=== PATIENT | male | born 1955 | race Caucasian/White ===

== ENCOUNTER 2016-10-07 19:33 | Inpatient (IN) ==
[2016-10-07] MEDS ORDERED: Levofloxacin 750 MG/150 ML 750 MG/150 ML BAG IVPB ONE (19:37)
[2016-10-07] MEDS ORDERED: Ipratropium/Albuterol Neb 3 ML IH ONE (19:37)
[2016-10-07] MEDS ORDERED: Piperacillin/Tazobactam 3.375 GM in D5% in Water (Mini-Bag+) 100 ML IVPB ONE (19:37)
[2016-10-07] MEDS ORDERED: Vancomycin 1,000 MG VIAL IVPB ONE (19:37)
[2016-10-07] MEDS ORDERED: methylPREDNISolone 125 MG/2 ML VIAL IVP ONE (19:37)
[2016-10-07] MEDS ORDERED: Ipratropium/Albuterol Neb 3 ML ONE (19:40)
--- NOTE | 2016-10-07 19:41 | Emergency Department Note ---
Disposition Clinical Impression: Community acquired pneumonia Disposition: Admitted As Inpatient Condition: Good Referrals: Dasia Donald MD [Primary Care Provider] - Forms: ED Satisfaction Letter Time of Disposition: 22:21 General Adult HPI - General Chief complaint: ED Shortness of Breath/Dyspnea Stated complaint: PABLO Time Seen by Provider: 10/07/16 19:37 Nursing Notes Reviewed: Yes Vital Signs Reviewed: Yes - History of Present Illness HPI Narrative: Male Pt diagnoses with pneumonia 4 days ago. He has been on antibiotics and steroids, howver his SOB got significantly worse today. Denies fevers. Denies pain. Reports exertional dyspnea. Requiring more oxygen than normal at home. - Related Data Home Medications Medication Instructions Recorded Confirmed Albuterol Neb [Proventil Neb] 2.5 mg IH Q4HR PRN 04/22/15 10/07/16 Albuterol Sulfate [Albuterol 1 - 2 puff IH Q4HR PRN 04/22/15 10/07/16 Inhaler] HYDROcodone/Acet 7.5/325 mg [[place]elope 1 tab PO Q6H PRN 04/22/15 10/07/16 7.5-325 mg] Omeprazole [PriLOSEC] 20 mg PO DAILY 04/22/15 10/07/16 Fluticasone/Salmeterol [Advair 1 puff IH BID 10/07/16 10/07/16 500-50 Diskus] Gabapentin [Neurontin] 600 mg PO TID 10/07/16 10/07/16 Guaifenesin [Mucinex] 600 mg PO Q12H PRN 10/07/16 10/07/16 Metoprolol [Lopressor] 12.5 mg PO BID 10/07/16 10/07/16 Pravastatin Sodium 10 mg PO DAILY 10/07/16 10/07/16 Roflumilast [Daliresp] 500 mcg PO DAILY 10/07/16 10/07/16 Umeclidinium [place] [Incruse 62.5 mcg IH DAILY 10/07/16 10/07/16 Ellipta] Previous Rx's Medication Instructions Recorded levoFLOXacin [Levaquin] 750 mg PO DAILY 7 Days 10/04/16 predniSONE [PredniSONE] 40 mg PO DAILY 7 Days 10/04/16 Allergies Allergy/AdvReac Type Severity Reaction Status Date / Time No Known Allergies Allergy Verified 10/04/16 08:35 All systems ED: reviewed and negative except as stated. Constitutional: Denies: fever, chills ENT ED: Reports: congestion Cardiovascular: Denies: chest pain, palpitations, syncope Respiratory: Reports: cough, dyspnea, wheezes, sputum production Gastrointestinal: Denies: abdominal pain, nausea, vomiting, diarrhea, hematemesis, melena, hematochezia Genitourinary: Denies: urgency, dysuria, frequency, hematuria Musculoskeletal: Denies: back pain Integumentary: Denies: rash Past Medical History - Past Medical History Medical history: Reports: COPD, GERD, hyperlipidemia, other Psychiatric history: Reports: depression - Social History Smoking Status: Current every day smoker Smokeless Tobacco Status: No Alcohol use: Reports: none Drug use: Reports: none Physical Exam - General Limitations: no limitations General appearance: alert, in distress (respiratory) - Head Head exam: atraumatic, normocephalic, normal inspection - Eye Eye exam: Present: normal appearance, PERRL, EOMI. Absent: scleral icterus - ENT ENT exam: normal exam, normal oropharynx, mucous membranes moist - Neck Neck exam: Present: normal inspection, full ROM, trachea midline. Absent: tenderness, meningismus, lymphadenopathy - Chest Chest inspection: Present: normal inspection, symmetric chest wall rise. Absent : tenderness, rash - Respiratory Respiratory exam: Present: respiratory distress, wheezes (tight lung sounds throuhout), accessory muscle use - Cardiovascular Cardiovascular exam: Present: regular rate, normal rhythm, normal heart sounds - Abdominal Exam Abdominal exam: Present: soft, Non-Tender, normal bowel sounds. Absent: tenderness, distention, guarding, rebound, rigidity - Extremities Exam Extremities exam: Present: normal inspection, full ROM, normal capillary refill. Absent: tenderness, pedal edema - Neurological Exam Neurological exam: Present: alert, oriented X3 - Psychiatric Psychiatric exam: Present: normal affect, normal mood - Skin Skin exam: Present: warm, dry, intact, normal color. Absent: rash, cyanosis, diaphoresis, erythema Course Course Narrative: Male Pt presenting to the ED by EMS. He was diagnosed with pneumonia on Thursday 4 days ago. He has been taking an unknown antibiotic at home as well as steroids. He states that today he got very Short of breath and called 911. He is complaing of a productive cough and exertional dyspnea. He is on a NRB at entrance to the ED and has an oxygen saturation in the mid 90's. He recieved 1 albuterol treatment during transport. Pt appears in respiratory distress, and has significant wheezing throughout. We have ordered 3 more duo nebs. Chest XRAY showed a right upper lobe pneumonia. We will begin Pt on triple antibiotics and admit him for failed out Patient therapy. He is maintainig an oxygen saturation of 95% on 2 lpm after steroids and a triple duo neb. - Consultations Consultation #1: Dr Olson accepted Pt in stable condition. Time: 21:22 Vital Signs Temperature 98.6 F 10/07/16 19:35 Pulse Rate 99 10/07/16 19:35 Respiratory Rate 24 10/07/16 19:35 Blood Pressure 182/103 10/07/16 19:35 O2 Sat by Pulse Oximetry 100 10/07/16 19:35 Temperature 98.6 F 10/07/16 19:35 Pulse Rate 92 10/07/16 20:32 Respiratory Rate 18 10/07/16 20:32 Blood Pressure 171/106 10/07/16 20:32 O2 Sat by Pulse Oximetry 99 10/07/16 20:32 Oxygen Delivery Oxygen Delivery Room Air Medical Decision Making - Medical Records Medical records reviewed: Yes I reviewed the patient's medical records. - Lab Data Lab results reviewed: Yes I reviewed the patient's lab results. Result diagrams: 10/07/16 20:10 10/07/16 20:10 Lab Results 10/07/16 10/07/16 10/07/16 Range/Units 20:10 20:10 20:10 WBC 9.7 (4.3-11.1) K/mcL RBC 5.31 (4.19-5.50) M/mcL Hgb 15.6 (12.9-16.9) g/dL Hct 47.1 (37.5-50.1) % MCV 88.7 (83.0-100.0) fL MCH 29.4 (28.0-33.3) pg MCHC 33.1 (31.6-35.5) g/dL RDW 13.5 (11.5-14.5) % Plt Count 276 (140-400) K/mcL MPV 9.2 L (9.4-12.4) fL Seg Neutrophils % 68.0 % Band Neutrophils % 2.0 (0-4) % Lymphocytes % 22.0 % Monocytes % 8.0 % Neutrophils # 6.8 (1.6-8.9) K/mcL Lymphocytes # 2.1 (0.6-4.6) K/mcL Monocytes # 0.8 (0.0-1.3) K/mcL Reactive Lymphocytes Present A (Not Present) Platelet Estimate Normal (Normal) Sodium 140 (136-145) mEq/L Potassium 4.1 (3.5-4.5) mEq/L Chloride 100 (98-109) mEq/L Carbon Dioxide 29 (19-29) mEq/L BUN 17 (8-26) mg/dL Creatinine 0.81 (0.72-1.25) mg/dL Est GFR ( Amer) > 60 (> 60) Est GFR (Non-Af Amer) > 60 (> 60) BUN/Creatinine Ratio 21 (6-26) Glucose 117 H (70-99) mg/dL Calculated Osmolality 293 (280-300) Lactic Acid 1.2 (0.5-2.2) mmol/L Calcium 9.8 (8.6-10.8) mg/dL Troponin I (0-0.03) ng/mL 10/07/16 Range/Units 20:10 WBC (4.3-11.1) K/mcL RBC (4.19-5.50) M/mcL Hgb (12.9-16.9) g/dL Hct (37.5-50.1) % MCV (83.0-100.0) fL MCH (28.0-33.3) pg MCHC (31.6-35.5) g/dL RDW (11.5-14.5) % Plt Count (140-400) K/mcL MPV (9.4-12.4) fL Seg Neutrophils % % Band Neutrophils % (0-4) % Lymphocytes % % Monocytes % % Neutrophils # (1.6-8.9) K/mcL Lymphocytes # (0.6-4.6) K/mcL Monocytes # (0.0-1.3) K/mcL Reactive Lymphocytes (Not Present) Platelet Estimate (Normal) Sodium (136-145) mEq/L Potassium (3.5-4.5) mEq/L Chloride (98-109) mEq/L Carbon Dioxide (19-29) mEq/L BUN (8-26) mg/dL Creatinine (0.72-1.25) mg/dL Est GFR ( Amer) (> 60) Est GFR (Non-Af Amer) (> 60) BUN/Creatinine Ratio (6-26) Glucose (70-99) mg/dL Calculated Osmolality (280-300) Lactic Acid (0.5-2.2) mmol/L Calcium (8.6-10.8) mg/dL Troponin I 0.00 (0-0.03) ng/mL - Radiology Data Radiology results reviewed: Yes I reviewed the patient's radiology results. Chest X-Ray 10/07/16 19:37 IMPRESSION: Present patchy opacity in the right upper lung zone, concerning for pneumonia. As before, follow-up radiographs are recommended to document resolution. If this fails to resolve, further evaluation with CT may be warranted. D/ / Deny Morrell MD / Deny Morrell MD Interpreting Provider: Deny Morrell MD - EKG Data EKG #1 EKG attestation: Yes I reviewed and interpreted this EKG. EKG results narrative: Normal sinus rhythm at a rate of 88. [place] interval 152 QRS duration 104, QT 351, QTC 397. NO signs of acute ischemia. No significant changes from previous EKG dated 10/04/16.
--- NOTE | 2016-10-07 20:04 | Emergency Department Note ---
START Narrative - START START: I examined this patient and my medical decision-making was reviewed with the ROOFING MACHINE OPERATOR/PA/Advanced Practice Nurse/Resident Physician. I agree with the documented findings, disposition and treatment plan as described except to the extent set forth below. ED attending note: Patient seen with emergency medicine resident Dr Walters. We independently evaluated the patient. We independently had [id number] contact with the patient. Please see a copy of his note for details of the history and physical, evaluation, management and disposition of this emergency Department patient. Briefly: This 61-year-old male home O2 dependent recently diagnosed with pneumonia increasing shortness of breath despite supplemental home O2. Comes in wheezing and fatigued. Ill but nontoxic. Tachycardic. Patient getting couple DuoNeb treatments IV antibiotics chest x-ray blood cultures admission is anticipated. Provided 35 minutes of critical care services for this patient. Disposition PENDING
[2016-10-07 20:24] LABS: Hematocrit 47.1 % (37.5-50.1); Hemoglobin 15.6 g/dL (12.9-16.9); Mean Corpuscular HGB Conc 33.1 g/dL (31.6-35.5); Mean Corpuscular Hemoglobin 29.4 pg (28.0-33.3); Mean Corpuscular Volume 88.7 fL (83.0-100.0); Mean Platelet Volume 9.2 fL (9.4-12.4); Platelet Count 276 K/mcL (140-400); Red Blood Count 5.31 M/mcL (4.19-5.50); Red Cell Distribution Width 13.5 % (11.5-14.5)
[2016-10-07 20:36] LABS: BUN/Creatinine Ratio 21 (6-26); Blood Urea Nitrogen 17 mg/dL (8-26); Calcium 9.8 mg/dL (8.6-10.8); Carbon Dioxide 29 mEq/L (19-29); Chloride 100 mEq/L (98-109); Glucose 117 mg/dL (70-99); Osmolality,Calculated 293 (280-300); Potassium 4.1 mEq/L (3.5-4.5); Sodium 140 mEq/L (136-145); eGFR For African Americans > 60 (> 60); eGFR For Non-African Americans > 60 (> 60)
[2016-10-07 20:51] LABS: Lymphocytes # 2.1 K/mcL (0.6-4.6); Monocytes # 0.8 K/mcL (0.0-1.3); Neutrophils # 6.8 K/mcL (1.6-8.9); Platelet Estimate Normal (Normal)
[2016-10-07 20:52] LABS: Reactive Lymphocytes Present (Not Present)
[2016-10-07] MEDS ORDERED: D5% in Water 250 ML ONE (21:33)
[2016-10-07] MEDS ORDERED: Acetaminophen 325 MG TABLET PO PRN (22:27)
[2016-10-07] MEDS ORDERED: Naloxone 0.4 MG/ML INJ IVP PRN (22:27)
[2016-10-07] MEDS ORDERED: *HR* HYDROcodone/Acet 7.5/325 mg TABLET PO PRN (22:34)
[2016-10-07] MEDS ORDERED: Albuterol 2.5 MG/3 ML NEBULIZER IH PRN (22:36)
--- NOTE | 2016-10-07 23:10 | Internal Med History&Physical ---
Date of Encounter: 10/07/16 Time of Encounter: 23:01 Assessment and Plan (1) Community acquired pneumonia Current visit: Yes Status: Acute 1 patient has been experiencing increasing shortness of breath as well as cough since Thursday. He presented to the ER on Thursday these complaints he was offered admission however he declined he was given prescription for Levaquin as well as steroids he did not take medication as prescribed her symptoms worsened over the next few days. Today he presented increasing shortness of breath chest x-ray did confirm a right upper lobe pneumonia. He was started on Levaquin pink and Zosyn. We will continue with Levaquin and Zosyn 2 continue with bronchodilators 3 continue with steroids 4 we will will obtain sputum culture 5 oxygen as needed titrating to maintain SPO2 greater than 92% (2) Acute exacerbation of chronic obstructive airways disease Current visit: Yes Status: Acute 1 patient has wheezing upon presentation. Oxygen saturation is 93% on room air at this time. He will continue with oxygen titrating to maintain SPO2 greater than 92% 2 we will continue with bronchodilators 3 continue with steroids IV to taper 4. Encourage patient to stop smoking 5 continue with dailiresp (3) HTN (hypertension) Current visit: Yes Status: Acute 1 we will continue with home medications Qualifiers: Hypertension type: essential hypertension Qualified Code(s): I10 - Essential (primary) hypertension (4) GERD (gastroesophageal reflux disease) Current visit: No Status: Acute Continue with Prilosec Qualifiers: Esophagitis presence: without esophagitis Qualified Code(s): K21.9 - Gastro -esophageal reflux disease without esophagitis (5) Tobacco abuse Current visit: No Status: Chronic Encouraged patient to stop smoking-nicotine patch (6) DVT prophylaxis Current visit: Yes Status: Acute Lovenox [facility] Internal Medicine - H&P: HPI Chief complaint: SOB Admitted From: Emergency Dept Plans for Post Hospital Care: Home History of present illness: Mr. Orellana is a 61 year old male past medical history of COPD oxygen dependent GERD hypertension present smoker. According to the patient he has been experiencing cough shortness of breath since last Thursday. He presented to the ER at that time for evaluation, the ER physician on to admit the patient however he declined. He was given prescription of Levaquin by mouth as well as oral steroids. He had his prescriptions filled on Thursday, took them as prescribed. The patient did not feel any better over the next few days actually he began to feel worse. Experiencing increasing exertional dyspnea unable to perform his ADLs despite the use of oxygen/or bronchodilators. He does have a cough however is unable to produce any sputum he denies any fevers or chills. States he is unable to sleep due to shortness of breath. He called 911 and during transfer and received albuterol treatment upon arrival to the ER with a saturation mid 90s. He appeared to be in respiratory distress with significant wheezing he was given 3 more duo nebs as well as IV Solu-Medrol. Chest x-ray showed right upper lobe pneumonia. Lab work was unremarkable leukocytosis patient was afebrile. he was admitted for further workup evaluation. presently upon assessment patient is sitting on side of bed there are audible wheezes. he denies any respiratory distress he states he feels better than when he first arrived to the hospital. His lung sounds are diminished in the bases with audible wheezes. Heart sounds are regular S1-S2 no rubs clicks murmurs noted. Abdomen soft nontender. There is no lower extremity edema noted. Presently he is hemodynamically stable at this time. This case with Dr. Olson who agrees with plan. Past Med Surg Social Fam HX - Past Medical History Medical history: COPD, GERD, hyperlipidemia, other Psychiatric history: depression - Social History Smoking Status: Current every day smoker Smokeless Tobacco Status: No Alcohol use: none Drug use: none - Family History Mother Living Status: Hx Family Cardiac Disorders: (MS) Internal Medicine - H&P: Meds Albuterol Neb [Proventil Neb] 2.5 mg IH Q4HR PRN 04/22/15 [History] Albuterol Sulfate [Albuterol Inhaler] 1 - 2 puff IH Q4HR PRN 04/22/15 [History] HYDROcodone/Acet 7.5/325 mg [[place] 7.5-325 mg] 1 tab PO Q6H PRN 04/22/15 [ History] Omeprazole [PriLOSEC] 20 mg PO DAILY 04/22/15 [History] levoFLOXacin [Levaquin] 750 mg PO DAILY 7 Days 10/04/16 [Rx] predniSONE [PredniSONE] 40 mg PO DAILY 7 Days 10/04/16 [Rx] Fluticasone/Salmeterol [Advair 500-50 Diskus] 1 puff IH BID 10/07/16 [History] Gabapentin [Neurontin] 600 mg PO TID 10/07/16 [History] Guaifenesin [Mucinex] 600 mg PO Q12H PRN 10/07/16 [History] Metoprolol [Lopressor] 12.5 mg PO BID 10/07/16 [History] Pravastatin Sodium 10 mg PO DAILY 10/07/16 [History] Roflumilast [Daliresp] 500 mcg PO DAILY 10/07/16 [History] Umeclidinium [place] [Incruse Ellipta] 62.5 mcg IH DAILY 10/07/16 [History] Allergies No Known Allergies Allergy (Verified 10/04/16 08:35) All Systems PM: A 10-system review of systems was performed and is negative for pertinent findings except as documented above in the HPI. - Constitutional Constitutional: no chills, no fever(s), no night sweats - EENT Eyes: no change in vision, no discharge, no pain, no photophobia Nose, mouth and throat: nasal congestion, no dysphagia, no nasal discharge, no neck pain, no sore throat - Cardiovascular Cardiovascular ROS IM: dyspnea on exertion, orthopnea, no chest pain, no diaphoresis, no dyspnea, no lightheadedness, no palpitations, no syncope - Respiratory Respiratory: cough, dyspnea on exertion, wheezing - Gastrointestinal Gastrointestinal: no abdominal pain, no diarrhea, no hematemesis, no hematochezia, no melena, no nausea, no vomiting - Musculoskeletal Musculoskeletal ROS IM: back pain, no numbness, no tingling - Integumentary Integumentary IM: no rash, no unusual bruising - Neurological Neurological ROS: no confusion, no convulsions, no focal weakness, no numbness, no tingling, no tremor(s) - Hematologic/Lymphatic Hematologic/Lymphatic: no easy bruising - Constitutional Vitals: Temp Pulse Resp BP Pulse Ox 98.8 F 80 0 0/0 96 10/07/16 22:29 10/07/16 22:05 10/07/16 22:29 10/07/16 22:29 10/07/16 22:05 General appearance: Present: A&O X 3, answers questions appropriately - Head Head exam: Present: atraumatic, normocephalic - Eye Eye exam: Present: PERRL, conjuntiva pink, sclera anicteric Pupils: Present: PERRL - Neck Neck exam general surgery: Present: supple, trachea midline. Absent: lymphadenopathy - Respiratory Respiratory exam: Present: respiratory distress, wheezes. Absent: accessory muscle use, rales, rhonchi - Cardiovascular Cardiovascular exam: Present: RRR, +S1, +S2. Absent: diastolic murmur, gallop, rubs, systolic murmur - GI/Abdominal GI/Abdominal exam: Present: normal bowel sounds, soft, no peritoneal signs. Absent: distended, tenderness - Extremities Exam Extremities exam: Present: warm, radial pulses palpable and symetrical. Absent : calf tenderness, cyanotic, pedal edema - Neurological Exam Neurological exam: Present: CN II-XII intact, oriented X3, no focal deficits. Absent: pronater drift, facial droop, speech deficit - Skin Skin exam: Present: dry, intact Internal Med - H&P Results - Labs CBC & Chem 7: 10/07/16 20:10 10/07/16 20:10 - EKG Data EKG shows normal: sinus rhythm - Diagnostic Studies Other Images Additional comments: Chest X-Ray 10/07/16 19:37 IMPRESSION: Present patchy opacity in the right upper lung zone, concerning for pneumonia. As before, follow-up radiographs are recommended to document resolution. If this fails to resolve, further evaluation with CT may be warranted. D/ / Deny Morrell MD / Deny Morrell MD Interpreting Provider: Deny Morrell MD
[2016-10-07] MEDS: Gabapentin 300 MG CAPSULE PO SCH (23:44)
[2016-10-07] MEDS: Nicotine 7 MG PATCH.TD24 TD SCH (23:45)
[2016-10-07] MEDS: methylPREDNISolone 125 MG/2 ML VIAL IVP SCH (23:45)
[2016-10-08] MEDS: Ipratropium/Albuterol Neb 3 ML IH SCH ×7 (00:36→23:05)
[2016-10-08] MEDS: Piperacillin/Tazobactam 3.375 GM in D5% in Water (Mini-Bag+) 100 ML IVPB SCH ×3 (03:12→18:58)
[2016-10-08] MEDS: methylPREDNISolone 125 MG/2 ML VIAL IVP SCH ×3 (05:38→17:15)
[2016-10-08] MEDS: *HR* Enoxaparin 40 MG/0.4 ML SYRINGE SQ SCH (05:39)
[2016-10-08 06:13] LABS: Hematocrit 44.2 % (37.5-50.1); Hemoglobin 14.6 g/dL (12.9-16.9); Mean Corpuscular Hemoglobin 29.3 pg (28.0-33.3); Mean Corpuscular Volume 88.8 fL (83.0-100.0); Mean Platelet Volume 9.3 fL (9.4-12.4); Platelet Count 251 K/mcL (140-400); Red Blood Count 4.98 M/mcL (4.19-5.50); Red Cell Distribution Width 13.3 % (11.5-14.5)
[2016-10-08 06:20] LABS: BUN/Creatinine Ratio 18 (6-26); Blood Urea Nitrogen 14 mg/dL (8-26); Calcium 9.6 mg/dL (8.6-10.8); Carbon Dioxide 29 mEq/L (19-29); Chloride 100 mEq/L (98-109); Glucose 178 mg/dL (70-99); Osmolality,Calculated 291 (280-300); Potassium 4.2 mEq/L (3.5-4.5); Sodium 138 mEq/L (136-145); eGFR For African Americans > 60 (> 60); eGFR For Non-African Americans > 60 (> 60)
[2016-10-08 07:28] LABS: Hypochromasia Present (Not Present); Lymphocytes # 1.6 K/mcL (0.6-4.6); Monocytes # 0.4 K/mcL (0.0-1.3); Neutrophils # 4.7 K/mcL (1.6-8.9); Platelet Estimate Normal (Normal); Reactive Lymphocytes Present (Not Present)
[2016-10-08] MEDS ORDERED: (Umeclidinium Bromide [Incruse Ellipta] 62.5 MCG) IH SCH (09:00)
[2016-10-08] MEDS ORDERED: Roflumilast [Daliresp] 500 MCG PO SCH (09:00)
[2016-10-08] MEDS: Budesonide/Formoterol 160/4.5 MDI IH SCH ×2 (10:45→19:49)
[2016-10-08] MEDS: Gabapentin 300 MG CAPSULE PO SCH ×3 (10:50→20:05)
[2016-10-08] MEDS: Nicotine 7 MG PATCH.TD24 TD SCH (10:52)
[2016-10-08] MEDS: Lactobacillus 1 EACH CAP.SPRINK PO SCH ×2 (10:52→20:05)
[2016-10-08] MEDS: Fluticasone Propionate Nasal 50 MCG/SPRAY BOTTLE NS SCH (13:14)
--- NOTE | 2016-10-08 16:18 | Internal Med Progress Note ---
Date of Encounter: 10/08/16 Time of Encounter: 09:00 - Assessment and plan (1) Community acquired pneumonia Current Visit: Yes Status: Acute Assessment and plan: Patient has failed by mouth Levaquin treatment as outpatient. We will continue IV Levaquin and IV Zosyn. Continue symptomatic and supportive treatment (2) Acute exacerbation of chronic obstructive airways disease Current Visit: Yes Status: Acute Assessment and plan: We will continue antibiotic, steroid, and bronchodilator treatment. Continue oxygen therapy and symptomatic treatment (3) GERD (gastroesophageal reflux disease) Current Visit: No Status: Acute Assessment and plan: Continue by mouth PPI omeprazole Qualifiers: Esophagitis presence: without esophagitis Qualified Code(s): K21.9 - Gastro -esophageal reflux disease without esophagitis (4) Hyperlipidemia Current Visit: No Status: Acute Assessment and plan: Continue home medications simvastatin Qualifiers: Hyperlipidemia type: mixed hyperlipidemia Qualified Code(s): E78.2 - Mixed hyperlipidemia (5) HTN (hypertension) Current Visit: Yes Status: Acute Assessment and plan: BP is stable continue home medications Qualifiers: Hypertension type: essential hypertension Qualified Code(s): I10 - Essential (primary) hypertension (6) DVT prophylaxis Current Visit: Yes Status: Acute Assessment and plan: Lovenox subcutaneously (7) Tobacco abuse Current Visit: No Status: Chronic Assessment and plan: Smoking cessation education has been done. On nicotine patch - Time Spent With Patient 25 - 35 minutes - Subjective Interval history: Patient is a 61-year-old male admitted for COPD exacerbation and pneumonia. His past medical history significant for COPD, hypertension, GERD, tobacco abuse Patient was seen and examined. Still has shortness of breath, in acute respiratory distress. Wheezing. Feels better than yesterday. No fever. Nonproductive cough. Vitals are stable. Continue current treatment. - Constitutional Vitals: Temp Pulse Resp BP Pulse Ox 98.4 F 112 18 128/86 96 10/08/16 11:26 10/08/16 11:26 10/08/16 16:06 10/08/16 11:26 10/08/16 16:06 General appearance: Present: mild distress, A&O X 3, answers questions appropriately - Head Head exam: Present: atraumatic, normocephalic - Eye Eye exam: Present: PERRL, conjuntiva pink, sclera anicteric Pupils: Present: PERRL - Neck Neck exam general surgery: Present: supple, trachea midline. Absent: lymphadenopathy - Respiratory Respiratory exam: Present: CTAB, wheezes (Diffused wheezes bilaterally). Absent : accessory muscle use, rales, rhonchi - Cardiovascular Cardiovascular exam: Present: RRR, +S1, +S2. Absent: diastolic murmur, gallop, rubs, systolic murmur - GI/Abdominal GI/Abdominal exam: Present: normal bowel sounds, soft, no peritoneal signs. Absent: distended, tenderness - Extremities Exam Extremities exam: Present: warm, radial pulses palpable and symetrical. Absent : calf tenderness, cyanotic, pedal edema - Neurological Exam Neurological exam: Present: CN II-XII intact, oriented X3, no focal deficits. Absent: pronater drift, facial droop, speech deficit - Skin Skin exam: Present: dry, intact Internal Medicine: Result - Labs CBC & Chem 7: 10/08/16 05:38 10/08/16 05:38 Labs: Short CBC 10/08/16 Range/Units 05:38 WBC 6.7 (4.3-11.1) K/mcL Hgb 14.6 (12.9-16.9) g/dL Hct 44.2 (37.5-50.1) % Plt Count 251 (140-400) K/mcL Neutrophils # 4.7 (1.6-8.9) K/mcL BMP 10/08/16 05:38 Sodium 138 Potassium 4.2 Chloride 100 Carbon Dioxide 29 BUN 14 Creatinine 0.79 Glucose 178 H Calcium 9.6 Consult Discharge Plan - Plan Referrals: Dasia Donald MD [Primary Care Provider] -
[2016-10-08] MEDS: *HR* HYDROcodone/Acet 7.5/325 mg TABLET PO PRN (20:05)
[2016-10-08] MEDS ORDERED: Levofloxacin 750 MG/150 ML 750 MG/150 ML BAG IVPB SCH (20:30)
[2016-10-08] MEDS ORDERED: levoFLOXacin 750 MG TABLET PO SCH (20:30)
[2016-10-08 23:30] LABS: Adenovirus F 40/41 PCR Not detected (Not detect); Astrovirus PCR Not detected (Not detect); C.difficile Toxin A/B by PCR Not detected (Not detect); Campylobacter by PCR Not detected (Not detect); Cryptosporidium by PCR Not detected (Not detect); Cyclospora cayetanensis PCR Not detected (Not detect); E. coli O157 by PCR Not detected (Not detect); Entamoeba histolytica PCR Not detected (Not detect); Enteroaggregative E.coli(EAEC) Not detected (Not detect); Enteropathogenic E.coli(EPEC) Not detected (Not detect); Enterotoxigenic E.coli (ETEC) Not detected (Not detect); Giardia lamblia PCR Not detected (Not detect); Norovirus GI/GII PCR Not detected (Not detect); Plesiomonas shigelloides PCR Not detected (Not detect); Rotavirus A PCR Not detected (Not detect); Salmonella PCR Not detected (Not detect); Sapovirus PCR Not detected (Not detect); Shig/EnteroinvasiveE coli EIEC Not detected (Not detect); Shigalike tox-prod E coli STEC Not detected (Not detect); Vibrio PCR Not detected (Not detect); Vibrio cholerae PCR Not detected (Not detect); Yersinia enterocolitica PCR Not detected (Not detect)
[2016-10-09] MEDS: Piperacillin/Tazobactam 3.375 GM in D5% in Water (Mini-Bag+) 100 ML IVPB SCH (03:44)
[2016-10-09] MEDS: *HR* HYDROcodone/Acet 7.5/325 mg TABLET PO PRN ×2 (03:47→09:37)
[2016-10-09] MEDS: Ipratropium/Albuterol Neb 3 ML IH SCH ×3 (04:09→11:14)
[2016-10-09 06:07] LABS: Basophils % 0.1 %; Hematocrit 44.2 % (37.5-50.1); Hemoglobin 14.4 g/dL (12.9-16.9); Immature Granulocytes % 0.6 % (0-4); Lymphocytes # 2.4 K/mcL (0.6-4.6); Lymphocytes % 16.4 %; Mean Corpuscular HGB Conc 32.6 g/dL (31.6-35.5); Mean Corpuscular Hemoglobin 29.2 pg (28.0-33.3); Mean Corpuscular Volume 89.7 fL (83.0-100.0); Mean Platelet Volume 9.4 fL (9.4-12.4); Monocytes # 1.2 K/mcL (0.0-1.3); Neutrophils # 10.8 K/mcL (1.6-8.9); Platelet Count 276 K/mcL (140-400); Red Blood Count 4.93 M/mcL (4.19-5.50); Red Cell Distribution Width 13.5 % (11.5-14.5); Segmented Neutrophils % 74.9 %
[2016-10-09] MEDS: methylPREDNISolone 125 MG/2 ML VIAL IVP SCH (06:17)
[2016-10-09] MEDS: *HR* Enoxaparin 40 MG/0.4 ML SYRINGE SQ SCH (06:18)
[2016-10-09 06:19] LABS: BUN/Creatinine Ratio 24 (6-26); Blood Urea Nitrogen 20 mg/dL (8-26); Calcium 9.5 mg/dL (8.6-10.8); Carbon Dioxide 30 mEq/L (19-29); Chloride 101 mEq/L (98-109); Glucose 159 mg/dL (70-99); Osmolality,Calculated 300 (280-300); Potassium 3.6 mEq/L (3.5-4.5); Sodium 142 mEq/L (136-145); eGFR For African Americans > 60 (> 60); eGFR For Non-African Americans > 60 (> 60)
[2016-10-09] MEDS: Budesonide/Formoterol 160/4.5 MDI IH SCH (07:39)
[2016-10-09] MEDS: Lactobacillus 1 EACH CAP.SPRINK PO SCH (09:24)
[2016-10-09] MEDS: Gabapentin 300 MG CAPSULE PO SCH (09:26)
[2016-10-09] MEDS: Nicotine 7 MG PATCH.TD24 TD SCH (09:26)
[2016-10-09] MEDS: Fluticasone Propionate Nasal 50 MCG/SPRAY BOTTLE NS SCH (09:29)
--- NOTE | 2016-10-09 09:38 | Discharge Summary ---
Date of Encounter: 10/09/16 Time of Encounter: 09:33 - Discharge Diagnosis (1) Acute exacerbation of chronic obstructive airways disease Priority: Primary Status: Acute (2) Community acquired pneumonia Priority: Primary Status: Acute (3) HTN (hypertension) Priority: Secondary Status: Chronic Qualifiers: Hypertension type: essential hypertension Qualified Code(s): I10 - Essential (primary) hypertension (4) Hyperlipidemia Priority: Secondary Status: Chronic Qualifiers: Hyperlipidemia type: mixed hyperlipidemia Qualified Code(s): E78.2 - Mixed hyperlipidemia (5) GERD (gastroesophageal reflux disease) Priority: Secondary Status: Chronic Qualifiers: Esophagitis presence: without esophagitis Qualified Code(s): K21.9 - Gastro -esophageal reflux disease without esophagitis (6) Tobacco abuse Priority: Secondary Status: Chronic - Discharge Medications Prescriptions: Fluticasone Propionate Nasal [Flonase] 100 mcg NS DAILY #1 bottle Nicotine Patch [Nicoderm] 7 mg TD DAILY #30 patch.[id number] PredniSONE [Deltasone] 40 mg PO DAILY #10 tablet Saline Nasal [place] [[place] Nasal [place]] 1 spray NS AD #1 spray Home Medications: Albuterol Neb [Proventil Neb] 2.5 mg IH Q4HR PRN 04/22/15 [History] Albuterol Sulfate [Albuterol Inhaler] 1 - 2 puff IH Q4HR PRN 04/22/15 [History] HYDROcodone/Acet 7.5/325 mg [[place] 7.5-325 mg] 1 tab PO Q6H PRN 04/22/15 [ History] Omeprazole [PriLOSEC] 20 mg PO DAILY 04/22/15 [History] Fluticasone/Salmeterol [Advair 500-50 Diskus] 1 puff IH BID 10/07/16 [History] Gabapentin [Neurontin] 600 mg PO TID 10/07/16 [History] Guaifenesin [Mucinex] 600 mg PO Q12H PRN 10/07/16 [History] Metoprolol [Lopressor] 12.5 mg PO BID 10/07/16 [History] Pravastatin Sodium 10 mg PO DAILY 10/07/16 [History] Roflumilast [Daliresp] 500 mcg PO DAILY 10/07/16 [History] Umeclidinium [place] [Incruse Ellipta] 62.5 mcg IH DAILY 10/07/16 [History] Fluticasone Propionate Nasal [Flonase] 100 mcg NS DAILY #1 bottle 10/09/16 [Rx] Nicotine Patch [Nicoderm] 7 mg TD DAILY #30 patch.td24 10/09/16 [Rx] PredniSONE [Deltasone] 40 mg PO DAILY #10 tablet 10/09/16 [Rx] Saline Nasal [place] [[place] Nasal [place]] 1 spray NS AD #1 spray 10/09/16 [Rx] levoFLOXacin [Levaquin] 750 mg PO Q24H tablet 10/09/16 [Rx] Allergies/Adverse Reactions: Allergies No Known Allergies Allergy (Verified 10/04/16 08:35) Date of admission: 10/07/16 22:27 Primary care physician: Dasia Donald MD Discharging clinician: Miguel Angel Dillon Anticipated date of discharge: 10/09/16 - Patient Status Disposition: Home, Self-Care Condition: Good Functional capacity at discharge: independent ambulation Overall status at discharge: patient is progressing back to baseline - Discharge Instructions Instructions: Pneumonia (DC) Follow Up With: Dasia Donald MD [Primary Care Provider] - 10/15/16 1:00 pm (Please follow up with [facility] Fred Vick CNP for this visit and your new PCP that is taking over for Dr. Donald will start in November) Additional Instructions: Use nasal saline as needed to moisture nose. Follow up with primary doctor in 1-2 weeks. - Diet and Activity Activity: increase activity as tolerated Diet: advance to your usual diet Hospital course: Mr. Orellana is a 61 year old male presented to ED with complaints of worsening dyspnea. He originally was seen and started on PO Levaquin and steroids. He took these for a few days but was no better and presented to ED with similar complaints. He was subsequently admitted. Mr. Orellana was admitted to [facility]. He was started on IV steroids, abx, aerosols, and aggressive pulmonary care. He had slow improvement in his symptoms and steroids were taper. On 10/09 he felt that he was at baseline breathing. He had all of his medications at home including nebulizer. He says he wheezes always and is dyspneic with movement. He felt he was at baseline and ready to go home. He was afebrile and vitals were stable. He is high risk for readmission due to his overall poor respiratory status but he has been maximized here in the hospital. - Time Spent with Patient Total time spent providing and/or coordinating discharge services: 39min - Constitutional Vitals: Temp Pulse Resp BP Pulse Ox 97.3 F L 98 18 143/82 97 10/09/16 07:02 10/09/16 07:02 10/09/16 07:41 10/09/16 07:02 10/09/16 07:41 General appearance: Present: A&O X 3, answers questions appropriately - Head Head exam: Present: normocephalic - Eye Eye exam: Present: EOMI, conjuntiva pink - ENT ENT exam: Present: mucous membranes moist - Respiratory Respiratory exam: Present: prolonged expiratory phase, wheezes - Cardiovascular Cardiovascular exam: Present: RRR. Absent: tachycardia - GI/Abdominal GI/Abdominal exam: Present: soft. Absent: tenderness - Extremities Exam Extremities exam: Present: warm. Absent: pedal edema, tenderness - Neurological Exam Neurological exam: Present: alert, oriented X3, no focal deficits - Skin Skin exam: Present: warm. Absent: rash
[2016-10-09 10:52] VITALS: BP 157/87
--- NOTE | 2016-10-09 11:16 | Electrocardiograph Report ---
[place] [id number] Test Date: 2016-10-07 Pat Name: Will Orellana Department: 105 Room: 2A25 Gender: M Production Associate: [id number] : 1955 Requested By: Hedy Walters Order Number: [id number] Reading MD: Olivier Carroll MD Measurements Intervals [place] Rate: 88 P: 90 IA: 152 QRS: 75 QRSD: 104 T: 73 QT: 351 QTc: 397 Interpretive Statements SINUS RHYTHM Electronically Signed On 10-09-2016 11:15:07 EDT by Olivier Carroll MD
== END 2016-10-09 11:30 | disposition home or self-care (01) | DRG 140 ==
LOC: EMEROO 19:33 → 2ANU 19:33 → SUATTDRO 22:27 → 2ANU 22:32
PROVIDERS: ADMIT Internal Medicine; ATTEND Internal Medicine

== ENCOUNTER 2019-12-15 04:34 | Inpatient (IN) ==
[2019-12-15] MEDS ORDERED: Ipratropium/Albuterol Neb 3 ML IH ONE (04:51)
[2019-12-15] MEDS ORDERED: methylPREDNISolone 125 MG/2 ML VIAL IVP ONE (04:51)
[2019-12-15] MEDS ORDERED: cefTRIAXone 1,000 MG in 0.9 % Sodium Chloride Mini Bag 100 ML IVPB ONE (05:20)
[2019-12-15] MEDS ORDERED: Azithromycin 500 MG in 0.9 % Sodium Chloride 250 ML IVPB ONE (05:20)
[2019-12-15 05:24] LABS: Basophils # 0.1 K/mcL (0.0-0.2); Basophils % 0.3 %; Eosinophils # 0.2 K/mcL (0.0-0.6); Eosinophils % 0.9 %; Hematocrit 39.3 % (37.5-50.1); Hemoglobin 12.5 g/dL (12.9-16.9); Immature Granulocytes % 0.5 % (0-4); Lymphocytes # 2.1 K/mcL (0.6-4.6); Mean Corpuscular HGB Conc 31.8 g/dL (31.6-35.5); Mean Corpuscular Hemoglobin 31.9 pg (28.0-33.3); Mean Corpuscular Volume 100.3 fL (83.0-100.0); Mean Platelet Volume 9.5 fL (9.4-12.4); Monocytes # 1.9 K/mcL (0.0-1.3); Monocytes % 9.4 %; Neutrophils # 16.2 K/mcL (1.6-8.9); Platelet Count 303 K/mcL (140-400); Red Blood Count 3.92 M/mcL (4.19-5.50); Segmented Neutrophils % 78.9 %; White Blood Count 20.5 K/mcL (4.3-11.1)
[2019-12-15 05:41] LABS: INR 1.1; Prothrombin Time 12.6 Seconds (9.4-12.1)
[2019-12-15] MEDS ORDERED: Isovue-370 500 ML BOTTLE IVP ONE (05:51)
[2019-12-15 05:52] LABS: VBG HCO3 38 mEq/L (21-27); VBG PCO2 83 mmHg (41-51); VBG PH 7.28 pH Units (7.32-7.42); VBG PO2 69 mmHg (25-50)
[2019-12-15 07:15] LABS: Adenovirus Not Detected (Not Detect); Coronavirus 229E Not Detected (Not Detect); Coronavirus HKU1 Not Detected (Not Detect); Coronavirus NL63 Not Detected (Not Detect); Coronavirus OC43 Not Detected (Not Detect)
[2019-12-15 07:18] LABS: Bordetella Pertussis Not Detected (Not Detect); Chlamydophila pneumoniae Not Detected (Not Detect); Human Metapneumovirus Not Detected (Not Detect); Human Rhinovirus/Enterovirus Not Detected (Not Detect); Influenza A Subtype 2009 H1 Not Detected (Not Detect); Influenza B Not Detected (Not Detect); Mycoplasma pneumoniae Not Detected (Not Detect); Parainfluenza Virus 1 Not Detected (Not Detect); Parainfluenza Virus 2 Not Detected (Not Detect); Parainfluenza Virus 3 Not Detected (Not Detect); Parainfluenza Virus 4 Not Detected (Not Detect); Respiratory Syncytial Virus Not Detected (Not Detect); SARS-CoV-2 Not Detected (Not Detect)
[2019-12-15 07:26] LABS: Alanine Aminotransferase 9 Units/L (7-52); Albumin 4.1 g/dL (3.5-5.7); Albumin/Globulin Ratio 1.1 (1.1-2.2); Alkaline Phosphatase 61 Units/L (34-104); Aspartate Amino Transferase 13 Units/L (13-39); BUN/Creatinine Ratio 25 (6-26); Bilirubin,Direct 0.1 mg/dL (0.0-0.2); Bilirubin,Indirect 0.3 mg/dL (0.0-1.0); Bilirubin,Total 0.4 mg/dL (0.3-1.0); Blood Urea Nitrogen 12 mg/dL (8-23); Calcium 9.7 mg/dL (8.6-10.3); Carbon Dioxide 35 mEq/L (23-29); Chloride 97 mEq/L (98-107); Globulin 3.7 g/dL (2.4-3.5); Glucose 130 mg/dL (70-105); Lipase 13 Units/L (11-82); Osmolality,Calculated 292 (280-300); Potassium 4.5 mEq/L (3.5-5.1); Sodium 140 mEq/L (136-145); Total Protein 7.8 g/dL (6.4-8.9); eGFR For African Americans > 60 (> 60); eGFR For Non-African Americans > 60 (> 60)
[2019-12-15 08:13] LABS: Troponin I < 0.03 ng/mL (< 0.04)
[2019-12-15] MEDS ORDERED: Naloxone 0.4 MG/ML INJ IVP PRN (09:11)
[2019-12-15] MEDS ORDERED: Albuterol 2.5 MG/3 ML NEBULIZER IH PRN (09:32)
[2019-12-15] MEDS: Budesonide/Formoterol 160/4.5 1 PUFF INH IH SCH ×2 (10:07→20:28)
[2019-12-15] MEDS: Ipratropium/Albuterol Neb 3 ML IH SCH ×3 (10:07→20:28)
[2019-12-15] MEDS: Ringers Solution, Lactated 1,000 ML IVC SCH (11:03)
[2019-12-15] MEDS: Nicotine 21 MG PATCH.TD24 TD SCH (16:13)
[2019-12-15] MEDS: methylPREDNISolone 125 MG/2 ML VIAL IVP SCH (16:13)
[2019-12-15] MEDS: tiZANidine 4 MG TABLET PO SCH (19:52)
[2019-12-15] MEDS: Melatonin 3 MG TABLET PO SCH (19:53)
[2019-12-16] MEDS: Ipratropium/Albuterol Neb 3 ML IH SCH ×7 (00:16→23:23)
[2019-12-16] MEDS: methylPREDNISolone 125 MG/2 ML VIAL IVP SCH ×3 (00:47→15:48)
[2019-12-16] MEDS: Ringers Solution, Lactated 1,000 ML IVC SCH (00:49)
[2019-12-16 05:16] LABS: Basophils % 0.1 %; Hematocrit 35.5 % (37.5-50.1); Immature Granulocytes % 0.6 % (0-4); Lymphocytes # 0.8 K/mcL (0.6-4.6); Lymphocytes % 5.8 %; Mean Corpuscular Hemoglobin 31.3 pg (28.0-33.3); Mean Corpuscular Volume 101.1 fL (83.0-100.0); Mean Platelet Volume 9.5 fL (9.4-12.4); Monocytes # 0.6 K/mcL (0.0-1.3); Monocytes % 4.4 %; Neutrophils # 12.9 K/mcL (1.6-8.9); Platelet Count 292 K/mcL (140-400); Red Blood Count 3.51 M/mcL (4.19-5.50); Red Cell Distribution Width 13.6 % (11.5-14.5); Segmented Neutrophils % 89.1 %; White Blood Count 14.5 K/mcL (4.3-11.1)
[2019-12-16 05:38] LABS: BUN/Creatinine Ratio 27 (6-26); Blood Urea Nitrogen 14 mg/dL (8-23); Carbon Dioxide 40 mEq/L (23-29); Chloride 95 mEq/L (98-107); Glucose 137 mg/dL (70-105); Osmolality,Calculated 289 (280-300); Potassium 4.6 mEq/L (3.5-5.1); Sodium 138 mEq/L (136-145); eGFR For African Americans > 60 (> 60); eGFR For Non-African Americans > 60 (> 60)
[2019-12-16] MEDS: *HR* Heparin 5,000 UNIT/ML VIAL SQ SCH ×2 (06:32→16:13)
[2019-12-16] MEDS: Budesonide/Formoterol 160/4.5 1 PUFF INH IH SCH ×2 (07:23→19:53)
[2019-12-16] MEDS ORDERED: Azithromycin 500 MG in 0.9 % Sodium Chloride 250 ML IVPB SCH (09:00)
[2019-12-16] MEDS ORDERED: 0.9 % Sodium Chloride 250 ML ONE (09:57)
[2019-12-16] MEDS: Loratadine 10 MG TABLET PO SCH (10:06)
[2019-12-16] MEDS: Aspirin Enteric Coated 81 MG Tablet PO SCH (10:06)
[2019-12-16] MEDS: cefTRIAXone 1,000 MG in Water for inj. (sterile) 10 ML IVP SCH (10:07)
[2019-12-16] MEDS: Nicotine 21 MG PATCH.TD24 TD SCH (10:07)
[2019-12-16 10:10] LABS: ABG Base Excess 13 mEq/L (-2 to 3); ABG HCO3 41 mEq/L (21-27); ABG Oxygen Saturation 95 % (95-98); ABG PCO2 67 mmHg (35-45); ABG PH 7.39 pH Units (7.32-7.45); ABG PO2 79 mmHg (85-104); ABG TCO2 43 mEq/L (20-26)
[2019-12-16] MEDS: Fluticasone Propionate Nasal 50 MCG/SPRAY BOTTLE NS SCH (11:59)
[2019-12-16] MEDS: amLODIPine 5 MG TABLET PO SCH (16:13)
[2019-12-16] MEDS: tiZANidine 4 MG TABLET PO SCH (20:53)
[2019-12-16] MEDS: Melatonin 3 MG TABLET PO SCH (20:53)
[2019-12-17] MEDS: methylPREDNISolone 125 MG/2 ML VIAL IVP SCH ×3 (00:20→16:20)
[2019-12-17 03:15] LABS: Hematocrit 35.4 % (37.5-50.1); Mean Corpuscular HGB Conc 31.1 g/dL (31.6-35.5); Mean Corpuscular Volume 99.7 fL (83.0-100.0); Mean Platelet Volume 9.6 fL (9.4-12.4); Platelet Count 303 K/mcL (140-400); Red Blood Count 3.55 M/mcL (4.19-5.50); Red Cell Distribution Width 13.6 % (11.5-14.5); White Blood Count 16.4 K/mcL (4.3-11.1)
[2019-12-17 03:34] LABS: BUN/Creatinine Ratio 40 (6-26); Blood Urea Nitrogen 21 mg/dL (8-23); Calcium 9.8 mg/dL (8.6-10.3); Carbon Dioxide 36 mEq/L (23-29); Chloride 96 mEq/L (98-107); Glucose 132 mg/dL (70-105); Osmolality,Calculated 293 (280-300); Potassium 4.2 mEq/L (3.5-5.1); Sodium 139 mEq/L (136-145); eGFR For African Americans > 60 (> 60); eGFR For Non-African Americans > 60 (> 60)
[2019-12-17] MEDS: Ipratropium/Albuterol Neb 3 ML IH SCH ×6 (04:04→23:22)
[2019-12-17] MEDS: *HR* Heparin 5,000 UNIT/ML VIAL SQ SCH ×2 (05:46→16:20)
[2019-12-17] MEDS: Aspirin Enteric Coated 81 MG Tablet PO SCH (07:30)
[2019-12-17] MEDS: Loratadine 10 MG TABLET PO SCH (07:30)
[2019-12-17] MEDS: Azithromycin 250 MG TABLET PO SCH (07:30)
[2019-12-17] MEDS: Nicotine 21 MG PATCH.TD24 TD SCH (07:30)
[2019-12-17] MEDS: amLODIPine 5 MG TABLET PO SCH (07:30)
[2019-12-17] MEDS: cefTRIAXone 1,000 MG in Water for inj. (sterile) 10 ML IVP SCH (07:31)
[2019-12-17] MEDS: Budesonide/Formoterol 160/4.5 1 PUFF INH IH SCH ×2 (07:42→19:39)
[2019-12-17] MEDS: Fluticasone Propionate Nasal 50 MCG/SPRAY BOTTLE NS SCH (07:48)
[2019-12-17] MEDS: tiZANidine 4 MG TABLET PO SCH (21:53)
[2019-12-17] MEDS: Melatonin 3 MG TABLET PO SCH (21:53)
[2019-12-18] MEDS: methylPREDNISolone 125 MG/2 ML VIAL IVP SCH ×2 (00:53→07:53)
[2019-12-18] MEDS: Ipratropium/Albuterol Neb 3 ML IH SCH ×6 (03:21→23:54)
[2019-12-18 04:59] LABS: Hematocrit 35.8 % (37.5-50.1); Hemoglobin 11.3 g/dL (12.9-16.9); Mean Corpuscular HGB Conc 31.6 g/dL (31.6-35.5); Mean Corpuscular Hemoglobin 31.9 pg (28.0-33.3); Mean Corpuscular Volume 101.1 fL (83.0-100.0); Mean Platelet Volume 9.3 fL (9.4-12.4); Platelet Count 308 K/mcL (140-400); Red Blood Count 3.54 M/mcL (4.19-5.50); Red Cell Distribution Width 13.6 % (11.5-14.5); White Blood Count 15.3 K/mcL (4.3-11.1)
[2019-12-18 05:17] LABS: % Iron Saturation 36 % (20-55); Iron 83 mcg/dL (65-175); Transferrin 166 mg/dL (203-362)
[2019-12-18 05:18] LABS: BUN/Creatinine Ratio 36 (6-26); Blood Urea Nitrogen 23 mg/dL (8-23); Calcium 9.6 mg/dL (8.6-10.3); Carbon Dioxide 38 mEq/L (23-29); Chloride 99 mEq/L (98-107); Glucose 123 mg/dL (70-105); Magnesium 2.2 mg/dL (1.6-2.6); Osmolality,Calculated 299 (280-300); Phosphorous 3.6 mg/dL (2.7-4.5); Potassium 4.2 mEq/L (3.5-5.1); Sodium 142 mEq/L (136-145); eGFR For African Americans > 60 (> 60); eGFR For Non-African Americans > 60 (> 60)
[2019-12-18 05:42] LABS: Folate 4.1 ng/mL (3.0-16.0)
[2019-12-18] MEDS: *HR* Heparin 5,000 UNIT/ML VIAL SQ SCH ×2 (05:44→16:34)
[2019-12-18] MEDS: Budesonide/Formoterol 160/4.5 1 PUFF INH IH SCH ×2 (07:32→19:59)
[2019-12-18] MEDS: cefTRIAXone 1,000 MG in Water for inj. (sterile) 10 ML IVP SCH (07:53)
[2019-12-18] MEDS: Nicotine 21 MG PATCH.TD24 TD SCH (07:54)
[2019-12-18] MEDS: Aspirin Enteric Coated 81 MG Tablet PO SCH (07:54)
[2019-12-18] MEDS: NIFEdipine XL (24 HR) 60 MG TAB.ER.24 PO SCH (07:54)
[2019-12-18] MEDS: Loratadine 10 MG TABLET PO SCH (07:54)
[2019-12-18] MEDS: Azithromycin 250 MG TABLET PO SCH (07:54)
[2019-12-18] MEDS: Fluticasone Propionate Nasal 50 MCG/SPRAY BOTTLE NS SCH (07:55)
[2019-12-18] MEDS: tiZANidine 4 MG TABLET PO SCH (21:02)
[2019-12-18] MEDS: Melatonin 3 MG TABLET PO SCH (21:02)
[2019-12-19 03:13] LABS: Hematocrit 34.8 % (37.5-50.1); Mean Corpuscular HGB Conc 31.6 g/dL (31.6-35.5); Mean Corpuscular Hemoglobin 31.6 pg (28.0-33.3); Mean Platelet Volume 9.3 fL (9.4-12.4); Platelet Count 342 K/mcL (140-400); Red Blood Count 3.48 M/mcL (4.19-5.50); Red Cell Distribution Width 13.5 % (11.5-14.5)
[2019-12-19 03:34] LABS: BUN/Creatinine Ratio 42 (6-26); Blood Urea Nitrogen 26 mg/dL (8-23); Calcium 9.3 mg/dL (8.6-10.3); Carbon Dioxide 38 mEq/L (23-29); Chloride 99 mEq/L (98-107); Glucose 93 mg/dL (70-105); Magnesium 2.2 mg/dL (1.6-2.6); Osmolality,Calculated 298 (280-300); Phosphorous 3.7 mg/dL (2.7-4.5); Potassium 3.9 mEq/L (3.5-5.1); Sodium 142 mEq/L (136-145); eGFR For African Americans > 60 (> 60); eGFR For Non-African Americans > 60 (> 60)
[2019-12-19] MEDS: Ipratropium/Albuterol Neb 3 ML IH SCH ×3 (03:47→11:01)
[2019-12-19] MEDS: *HR* Heparin 5,000 UNIT/ML VIAL SQ SCH (06:33)
[2019-12-19] MEDS: Budesonide/Formoterol 160/4.5 1 PUFF INH IH SCH (07:10)
[2019-12-19] MEDS: Azithromycin 250 MG TABLET PO SCH (07:39)
[2019-12-19] MEDS: cefTRIAXone 1,000 MG in Water for inj. (sterile) 10 ML IVP SCH (07:39)
[2019-12-19] MEDS: NIFEdipine XL (24 HR) 60 MG TAB.ER.24 PO SCH (07:40)
[2019-12-19] MEDS: Aspirin Enteric Coated 81 MG Tablet PO SCH (07:41)
[2019-12-19] MEDS: Loratadine 10 MG TABLET PO SCH (07:41)
[2019-12-19] MEDS: Fluticasone Propionate Nasal 50 MCG/SPRAY BOTTLE NS SCH (07:42)
[2019-12-19] MEDS: Nicotine 21 MG PATCH.TD24 TD SCH (07:42)
[2019-12-19 11:22] VITALS: BP 159/87
[2019-12-19] MEDS ORDERED: MethylPREDNISolone 40 MG/ML VIAL IVP SCH (18:00)
== END 2019-12-19 12:32 | disposition home or self-care (01) | DRG 720 ==
LOC: 2ANU 04:34 → EMEROOARM 04:34 → 2ANU 09:45 → SUATTDRO 10:56
PROVIDERS: ADMIT Internal Medicine; ATTEND Internal Medicine

== ENCOUNTER 2020-01-14 13:36 | Inpatient (IN) ==
[2020-01-14] MEDS ORDERED: 0.9 % Sodium Chloride 1,000 ML IVC ONE (14:00)
[2020-01-14] MEDS ORDERED: Dexamethasone 4 MG/ML VIAL IVP ONE (14:00)
[2020-01-14] MEDS ORDERED: Ipratropium/Albuterol Neb 3 ML IH ONE (14:00)
[2020-01-14 14:06] LABS: Basophils % 0.2 %; Eosinophils # 0.1 K/mcL (0.0-0.6); Eosinophils % 1.1 %; Hematocrit 40.8 % (37.5-50.1); Hemoglobin 12.5 g/dL (12.9-16.9); Immature Granulocytes % 0.4 % (0-4); Lymphocytes # 2.4 K/mcL (0.6-4.6); Lymphocytes % 19.8 %; Mean Corpuscular HGB Conc 30.6 g/dL (31.6-35.5); Mean Corpuscular Hemoglobin 31.3 pg (28.0-33.3); Mean Corpuscular Volume 102.3 fL (83.0-100.0); Mean Platelet Volume 9.1 fL (9.4-12.4); Monocytes # 1.2 K/mcL (0.0-1.3); Monocytes % 9.8 %; Neutrophils # 8.4 K/mcL (1.6-8.9); Platelet Count 286 K/mcL (140-400); Red Blood Count 3.99 M/mcL (4.19-5.50); Red Cell Distribution Width 14.1 % (11.5-14.5); Segmented Neutrophils % 68.7 %; White Blood Count 12.3 K/mcL (4.3-11.1)
[2020-01-14 14:19] LABS: VBG HCO3 41 mEq/L (21-27); VBG PCO2 90 mmHg (41-51); VBG PH 7.26 pH Units (7.32-7.42); VBG PO2 45 mmHg (25-50)
[2020-01-14] MEDS ORDERED: Azithromycin 500 MG in D5% in Water 250 ML IVPB ONE (14:19)
[2020-01-14] MEDS ORDERED: cefTRIAXone 1,000 MG in Water for inj. (sterile) 10 ML IVP ONE (14:19)
[2020-01-14 14:26] LABS: Bilirubin,Urine Negative (Negative); Blood,Urine Large (Negative); Clarity,Urine Cloudy (Clear); Color,Urine Yellow (Yellow); Glucose,Urine (UA) Normal (Normal); Ketones,Urine Negative (Negative); Leukocyte Esterase,Urine Moderate (Negative); Nitrite,Urine Positive (Negative); Protein,Urine 100 mg/dL (Neg-Trace); Specific Gravity,Urine >= 1.030 (1.010-1.025); Urobilinogen,Urine Normal (Normal)
[2020-01-14 14:32] LABS: Alanine Aminotransferase 7 Units/L (7-52); Albumin 3.7 g/dL (3.5-5.7); Albumin/Globulin Ratio 1.2 (1.1-2.2); Alkaline Phosphatase 63 Units/L (34-104); Aspartate Amino Transferase 12 Units/L (13-39); BUN/Creatinine Ratio 21 (6-26); Bilirubin,Direct 0.1 mg/dL (0.0-0.2); Bilirubin,Indirect 0.1 mg/dL (0.0-1.0); Bilirubin,Total 0.2 mg/dL (0.3-1.0); Blood Urea Nitrogen 12 mg/dL (8-23); Calcium 9.1 mg/dL (8.6-10.3); Carbon Dioxide 37 mEq/L (23-29); Chloride 97 mEq/L (98-107); Globulin 3.2 g/dL (2.4-3.5); Glucose 116 mg/dL (70-105); Osmolality,Calculated 291 (280-300); Potassium 3.9 mEq/L (3.5-5.1); Sodium 140 mEq/L (136-145); Total Protein 6.9 g/dL (6.4-8.9); Troponin I < 0.03 ng/mL (< 0.04); eGFR For African Americans > 60 (> 60); eGFR For Non-African Americans > 60 (> 60)
[2020-01-14 14:36] LABS: Bacteria,Urine Many per hpf (None-Few); RBC,Urine TNTC per hpf (0-3); Squamous Epithelial Cell,Urine Present per hpf (None-Few); WBC,Urine TNTC per hpf (0-3)
[2020-01-14] MEDS ORDERED: Nicotine 21 MG PATCH.TD24 TD ONE (14:40)
[2020-01-14 15:03] LABS: Adenovirus Not Detected (Not Detect); Bordetella Pertussis Not Detected (Not Detect); Chlamydophila pneumoniae Not Detected (Not Detect); Coronavirus 229E Not Detected (Not Detect); Coronavirus HKU1 Not Detected (Not Detect); Coronavirus NL63 Not Detected (Not Detect); Coronavirus OC43 Not Detected (Not Detect); Human Metapneumovirus Not Detected (Not Detect); Human Rhinovirus/Enterovirus Not Detected (Not Detect); Influenza A Subtype 2009 H1 Not Detected (Not Detect); Influenza B Not Detected (Not Detect); Mycoplasma pneumoniae Not Detected (Not Detect); Parainfluenza Virus 1 Not Detected (Not Detect); Parainfluenza Virus 2 Not Detected (Not Detect); Parainfluenza Virus 3 Not Detected (Not Detect); Parainfluenza Virus 4 Not Detected (Not Detect); Respiratory Syncytial Virus Not Detected (Not Detect); SARS-CoV-2 Not Detected (Not Detect)
[2020-01-14] MEDS ORDERED: Naloxone 0.4 MG/ML INJ IVP PRN (16:40)
[2020-01-14] MEDS ORDERED: Ondansetron 4 MG/2 ML VIAL IVP PRN (16:40)
[2020-01-14] MEDS ORDERED: Dextrose Gel 15 GM/37.5 ML TUBE PO PRN ×2 (16:45)
[2020-01-14] MEDS ORDERED: *HR* Dextrose 50 % in Water (Vial) 50 ML VIAL IVP PRN (16:45)
[2020-01-14] MEDS ORDERED: D5% in Water 1,000 ML IVC PRN (16:45)
[2020-01-14 16:56] LABS: C-Reactive Protein 81 mg/L (Less than 10); Magnesium 1.9 mg/dL (1.6-2.6)
[2020-01-14 17:03] LABS: Prothrombin Time 11.6 Seconds (9.4-12.1)
[2020-01-14 17:50] LABS: Activated Partial Thrombo Time 36.6 Seconds (26.0-36.0)
[2020-01-14] MEDS ORDERED: *HR* Heparin 5,000 UNIT/ML VIAL SQ SCH (18:00)
[2020-01-14 18:39] LABS: ABG Base Excess 7 mEq/L (-2 to 3); ABG HCO3 38 mEq/L (21-27); ABG Oxygen Saturation 96 % (95-98); ABG PCO2 85 mmHg (35-45); ABG PH 7.25 pH Units (7.32-7.45); ABG PO2 102 mmHg (85-104); ABG TCO2 40 mEq/L (20-26)
[2020-01-14] MEDS: Budesonide/Formoterol 160/4.5 1 PUFF INH IH SCH (19:24)
[2020-01-14] MEDS: Ipratropium/Albuterol Neb 3 ML IH SCH ×2 (19:26→23:59)
[2020-01-14] MEDS: methylPREDNISolone 125 MG/2 ML VIAL IVP SCH (23:37)
[2020-01-14] MEDS: Insulin LISPRO 300 UNITS/3 ML VIAL SQ SCH (23:39)
[2020-01-15] MEDS ORDERED: MethylPREDNISolone 40 MG/ML VIAL IVP SCH
[2020-01-15] MEDS: Ipratropium/Albuterol Neb 3 ML IH SCH ×6 (03:17→23:43)
[2020-01-15] MEDS: Insulin LISPRO 300 UNITS/3 ML VIAL SQ SCH ×4 (06:01→17:55)
[2020-01-15 07:09] LABS: Basophils % 0.1 %; Hematocrit 39.8 % (37.5-50.1); Hemoglobin 12.2 g/dL (12.9-16.9); Immature Granulocytes % 0.3 % (0-4); Lymphocytes % 13.3 %; Mean Corpuscular HGB Conc 30.7 g/dL (31.6-35.5); Mean Corpuscular Hemoglobin 31.9 pg (28.0-33.3); Mean Corpuscular Volume 103.9 fL (83.0-100.0); Mean Platelet Volume 9.1 fL (9.4-12.4); Monocytes # 0.3 K/mcL (0.0-1.3); Monocytes % 3.5 %; Neutrophils # 6.1 K/mcL (1.6-8.9); Platelet Count 295 K/mcL (140-400); Red Blood Count 3.83 M/mcL (4.19-5.50); Red Cell Distribution Width 14.1 % (11.5-14.5); Segmented Neutrophils % 82.8 %; White Blood Count 7.4 K/mcL (4.3-11.1)
[2020-01-15 07:11] LABS: Fibrinogen 693 mg/dL (169-393)
[2020-01-15 07:13] LABS: D-Dimer 457 ng/mLFEU (0-500)
[2020-01-15 07:29] LABS: BUN/Creatinine Ratio 24 (6-26); Blood Urea Nitrogen 15 mg/dL (8-23); Calcium 9.9 mg/dL (8.6-10.3); Carbon Dioxide 40 mEq/L (23-29); Chloride 97 mEq/L (98-107); Glucose 134 mg/dL (70-105); Lactate Dehydrogenase 111 Units/L (140-271); Magnesium 1.9 mg/dL (1.6-2.6); Osmolality,Calculated 297 (280-300); Phosphorous 2.8 mg/dL (2.7-4.5); Potassium 4.6 mEq/L (3.5-5.1); Sodium 142 mEq/L (136-145); eGFR For African Americans > 60 (> 60); eGFR For Non-African Americans > 60 (> 60)
[2020-01-15] MEDS: Budesonide/Formoterol 160/4.5 1 PUFF INH IH SCH ×2 (07:40→19:52)
[2020-01-15 07:43] LABS: Ferritin 258 ng/mL (20-250)
[2020-01-15] MEDS: methylPREDNISolone 125 MG/2 ML VIAL IVP SCH ×2 (07:55→16:06)
[2020-01-15] MEDS: levoFLOXacin 750 MG/150 ML 750 MG/150 ML BAG IVPB SCH (07:57)
[2020-01-15] MEDS: Nicotine 21 MG PATCH.TD24 TD SCH (07:58)
[2020-01-15] MEDS: Metoprolol XL (24 HR) Succ 25 MG TAB.ER.24H PO SCH (08:01)
[2020-01-15 08:33] LABS: ABG Base Excess 10 mEq/L (-2 to 3); ABG HCO3 39 mEq/L (21-27); ABG Oxygen Saturation 95 % (95-98); ABG PCO2 69 mmHg (35-45); ABG PH 7.36 pH Units (7.32-7.45); ABG PO2 83 mmHg (85-104); ABG TCO2 41 mEq/L (20-26)
[2020-01-15] MEDS: Acetylcysteine 10% 2 ML INHSOL IH SCH ×3 (11:28→19:53)
[2020-01-15] MEDS: *HR* HYDROcodone/Acet 5/325 mg TABLET PO PRN ×2 (11:52→17:56)
[2020-01-15] MEDS ORDERED: Metoprolol XL (24 HR) Succ 25 MG TAB.ER.24H PO ONE (13:06)
[2020-01-15] MEDS: tiZANidine 4 MG TABLET PO SCH (19:39)
[2020-01-15] MEDS: Melatonin 3 MG TABLET PO SCH (19:39)
[2020-01-16] MEDS: Insulin LISPRO 300 UNITS/3 ML VIAL SQ SCH ×5 (00:18→23:32)
[2020-01-16] MEDS: methylPREDNISolone 125 MG/2 ML VIAL IVP SCH ×2 (00:23→07:17)
[2020-01-16] MEDS: Acetylcysteine 10% 2 ML INHSOL IH SCH ×4 (03:14→19:58)
[2020-01-16] MEDS: Ipratropium/Albuterol Neb 3 ML IH SCH ×6 (03:14→23:50)
[2020-01-16 04:28] LABS: Eosinophils % 0.1 %; Hematocrit 39.3 % (37.5-50.1); Hemoglobin 12.3 g/dL (12.9-16.9); Immature Granulocytes % 0.7 % (0-4); Lymphocytes # 1.1 K/mcL (0.6-4.6); Lymphocytes % 8.2 %; Mean Corpuscular HGB Conc 31.3 g/dL (31.6-35.5); Mean Corpuscular Volume 102.3 fL (83.0-100.0); Mean Platelet Volume 9.3 fL (9.4-12.4); Monocytes # 0.5 K/mcL (0.0-1.3); Monocytes % 3.4 %; Neutrophils # 11.5 K/mcL (1.6-8.9); Platelet Count 354 K/mcL (140-400); Red Blood Count 3.84 M/mcL (4.19-5.50); Red Cell Distribution Width 13.9 % (11.5-14.5); Segmented Neutrophils % 87.6 %
[2020-01-16 04:30] LABS: White Blood Count 13.1 K/mcL (4.3-11.1)
[2020-01-16 04:45] LABS: BUN/Creatinine Ratio 34 (6-26); Blood Urea Nitrogen 22 mg/dL (8-23); Calcium 10.1 mg/dL (8.6-10.3); Carbon Dioxide 38 mEq/L (23-29); Chloride 96 mEq/L (98-107); Glucose 140 mg/dL (70-105); Osmolality,Calculated 296 (280-300); Potassium 4.6 mEq/L (3.5-5.1); Sodium 140 mEq/L (136-145); eGFR For African Americans > 60 (> 60); eGFR For Non-African Americans > 60 (> 60)
[2020-01-16] MEDS: *HR* HYDROcodone/Acet 5/325 mg TABLET PO PRN ×3 (05:51→20:30)
[2020-01-16] MEDS: Aspirin Enteric Coated 81 MG Tablet PO SCH (07:18)
[2020-01-16] MEDS: Metoprolol XL (24 HR) Succ 25 MG TAB.ER.24H PO SCH (07:18)
[2020-01-16] MEDS: Loratadine 10 MG TABLET PO SCH (07:18)
[2020-01-16] MEDS: Nicotine 21 MG PATCH.TD24 TD SCH (07:19)
[2020-01-16] MEDS: levoFLOXacin 750 MG/150 ML 750 MG/150 ML BAG IVPB SCH (07:20)
[2020-01-16] MEDS: Budesonide/Formoterol 160/4.5 1 PUFF INH IH SCH ×2 (07:26→19:58)
[2020-01-16] MEDS ORDERED: NON-FORMULARY MEDICATION 1 EACH EACH (Fluticasone/Umeclidin/Vilanter [Trelegy Ellipta 100- IH SCH (09:00)
[2020-01-16] MEDS: MethylPREDNISolone 40 MG/ML VIAL IVP SCH ×2 (09:17→20:29)
[2020-01-16] MEDS: Fluticasone Propionate Nasal 50 MCG/SPRAY BOTTLE NS SCH (14:57)
[2020-01-16] MEDS: Sulfamethoxazole/Trimeth DS 1 EACH TABLET PO SCH (20:30)
[2020-01-16] MEDS: tiZANidine 4 MG TABLET PO SCH (20:30)
[2020-01-16] MEDS: Melatonin 3 MG TABLET PO SCH (20:30)
[2020-01-17 03:15] VITALS: BP 147/88
[2020-01-17] MEDS: Acetylcysteine 10% 2 ML INHSOL IH SCH ×2 (03:46→07:20)
[2020-01-17] MEDS: Ipratropium/Albuterol Neb 3 ML IH SCH ×3 (03:46→11:02)
[2020-01-17] MEDS: Insulin LISPRO 300 UNITS/3 ML VIAL SQ SCH (05:32)
[2020-01-17] MEDS: *HR* HYDROcodone/Acet 5/325 mg TABLET PO PRN (05:36)
[2020-01-17] MEDS: Budesonide/Formoterol 160/4.5 1 PUFF INH IH SCH (07:21)
[2020-01-17] MEDS ORDERED: Insulin LISPRO 300 UNITS/3 ML VIAL SQ SCH (07:30)
[2020-01-17] MEDS: Metoprolol XL (24 HR) Succ 25 MG TAB.ER.24H PO SCH (08:15)
[2020-01-17] MEDS: Nicotine 21 MG PATCH.TD24 TD SCH (08:16)
[2020-01-17] MEDS: Sulfamethoxazole/Trimeth DS 1 EACH TABLET PO SCH (08:16)
[2020-01-17] MEDS: Loratadine 10 MG TABLET PO SCH (08:16)
[2020-01-17] MEDS: Aspirin Enteric Coated 81 MG Tablet PO SCH (08:16)
[2020-01-17] MEDS: Fluticasone Propionate Nasal 50 MCG/SPRAY BOTTLE NS SCH (08:17)
[2020-01-17 08:21] LABS: BUN/Creatinine Ratio 41 (6-26); Blood Urea Nitrogen 30 mg/dL (8-23); Carbon Dioxide 41 mEq/L (23-29); Chloride 94 mEq/L (98-107); Glucose 107 mg/dL (70-105); Magnesium 2.1 mg/dL (1.6-2.6); Osmolality,Calculated 295 (280-300); Phosphorous 3.3 mg/dL (2.7-4.5); Potassium 4.4 mEq/L (3.5-5.1); Sodium 139 mEq/L (136-145); eGFR For African Americans > 60 (> 60); eGFR For Non-African Americans > 60 (> 60)
[2020-01-17 08:56] LABS: Estimated Average Glucose 120 mg/dl
[2020-01-17] MEDS ORDERED: Insulin DETEMIR 100 UNIT/ML X5UNITS SQ SCH (09:00)
== END 2020-01-17 11:26 | disposition home health service (06) | DRG 140 ==
LOC: 2ANU 13:36 → EMEROOARM 13:36 → SUATTDRO 17:19 → 2ANU 18:24
PROVIDERS: ADMIT Internal Medicine; ATTEND Internal Medicine

== ENCOUNTER 2020-01-19 14:01 | Inpatient (IN) ==
[2020-01-19] MEDS ORDERED: methylPREDNISolone 125 MG/2 ML VIAL IVP ONE (14:33)
[2020-01-19 14:55] LABS: Basophils % 0.1 %; Eosinophils % 0.1 %; Hematocrit 44.7 % (37.5-50.1); Immature Granulocytes % 0.6 % (0-4); Lymphocytes # 1.1 K/mcL (0.6-4.6); Lymphocytes % 7.8 %; Mean Corpuscular HGB Conc 31.8 g/dL (31.6-35.5); Mean Corpuscular Hemoglobin 31.4 pg (28.0-33.3); Mean Corpuscular Volume 98.9 fL (83.0-100.0); Monocytes # 0.8 K/mcL (0.0-1.3); Monocytes % 5.4 %; Neutrophils # 12.2 K/mcL (1.6-8.9); Platelet Count 443 K/mcL (140-400); Red Blood Count 4.52 M/mcL (4.19-5.50); Red Cell Distribution Width 13.7 % (11.5-14.5); White Blood Count 14.2 K/mcL (4.3-11.1)
[2020-01-19 14:57] LABS: Hemoglobin 14.2 g/dL (12.9-16.9)
[2020-01-19 15:21] LABS: BUN/Creatinine Ratio 26 (6-26); Blood Urea Nitrogen 19 mg/dL (8-23); Calcium 10.2 mg/dL (8.6-10.3); Carbon Dioxide 38 mEq/L (23-29); Chloride 88 mEq/L (98-107); Glucose 153 mg/dL (70-105); Osmolality,Calculated 285 (280-300); Potassium 4.7 mEq/L (3.5-5.1); Sodium 135 mEq/L (136-145); Troponin I 0.04 ng/mL (< 0.04); eGFR For African Americans > 60 (> 60); eGFR For Non-African Americans > 60 (> 60)
[2020-01-19] MEDS ORDERED: Naloxone 0.4 MG/ML INJ IVP PRN (17:03)
[2020-01-19] MEDS ORDERED: Ondansetron ODT 4 MG TAB.RAPDIS SL PRN (17:05)
[2020-01-19 17:52] LABS: ABG Base Excess 14 mEq/L (-2 to 3); ABG HCO3 43 mEq/L (21-27); ABG Oxygen Saturation 96 % (95-98); ABG PCO2 73 mmHg (35-45); ABG PH 7.38 pH Units (7.32-7.45); ABG PO2 90 mmHg (85-104); ABG TCO2 45 mEq/L (20-26)
[2020-01-19 18:06] LABS: Adenovirus Not Detected (Not Detect); Bordetella Pertussis Not Detected (Not Detect); Chlamydophila pneumoniae Not Detected (Not Detect); Coronavirus 229E Not Detected (Not Detect); Coronavirus HKU1 Not Detected (Not Detect); Coronavirus NL63 Not Detected (Not Detect); Coronavirus OC43 Not Detected (Not Detect); Human Metapneumovirus Not Detected (Not Detect); Human Rhinovirus/Enterovirus Not Detected (Not Detect); Influenza A Subtype 2009 H1 Not Detected (Not Detect); Influenza B Not Detected (Not Detect); Mycoplasma pneumoniae Not Detected (Not Detect); Parainfluenza Virus 1 Not Detected (Not Detect); Parainfluenza Virus 2 Not Detected (Not Detect); Parainfluenza Virus 3 Not Detected (Not Detect); Parainfluenza Virus 4 Not Detected (Not Detect); Respiratory Syncytial Virus Not Detected (Not Detect); SARS-CoV-2 Not Detected (Not Detect)
[2020-01-19] MEDS: methylPREDNISolone 125 MG/2 ML VIAL IVP SCH (19:34)
[2020-01-19] MEDS: Ipratropium/Albuterol Neb 3 ML IH SCH ×2 (19:40→23:12)
[2020-01-19] MEDS: Melatonin 3 MG TABLET PO SCH (21:00)
[2020-01-19] MEDS: Sulfamethoxazole/Trimeth DS 1 EACH TABLET PO SCH (21:00)
[2020-01-19] MEDS: tiZANidine 4 MG TABLET PO SCH (21:00)
[2020-01-19] MEDS: Nicotine 21 MG PATCH.TD24 TD SCH (22:06)
[2020-01-19] MEDS: Acetylcysteine 10% 2 ML INHSOL IH SCH (23:12)
[2020-01-20 03:24] LABS: Hematocrit 41.5 % (37.5-50.1); Hemoglobin 13.1 g/dL (12.9-16.9); Mean Corpuscular HGB Conc 31.6 g/dL (31.6-35.5); Mean Corpuscular Hemoglobin 31.7 pg (28.0-33.3); Mean Corpuscular Volume 100.5 fL (83.0-100.0); Mean Platelet Volume 9.4 fL (9.4-12.4); Platelet Count 347 K/mcL (140-400); Red Blood Count 4.13 M/mcL (4.19-5.50); Red Cell Distribution Width 13.5 % (11.5-14.5); White Blood Count 10.8 K/mcL (4.3-11.1)
[2020-01-20 03:42] LABS: BUN/Creatinine Ratio 29 (6-26); Blood Urea Nitrogen 23 mg/dL (8-23); Calcium 9.7 mg/dL (8.6-10.3); Carbon Dioxide 37 mEq/L (23-29); Chloride 92 mEq/L (98-107); Glucose 112 mg/dL (70-105); Osmolality,Calculated 286 (280-300); Potassium 4.9 mEq/L (3.5-5.1); Sodium 136 mEq/L (136-145); eGFR For African Americans > 60 (> 60); eGFR For Non-African Americans > 60 (> 60)
[2020-01-20] MEDS: Acetylcysteine 10% 2 ML INHSOL IH SCH ×4 (03:48→20:04)
[2020-01-20] MEDS: Ipratropium/Albuterol Neb 3 ML IH SCH ×6 (03:48→23:36)
[2020-01-20] MEDS: *HR* Heparin 5,000 UNIT/ML VIAL SQ SCH ×2 (05:49→18:17)
[2020-01-20] MEDS: methylPREDNISolone 125 MG/2 ML VIAL IVP SCH ×2 (05:49→16:51)
[2020-01-20] MEDS: Budesonide/Formoterol 160/4.5 1 PUFF INH IH SCH ×2 (07:25→20:04)
[2020-01-20] MEDS: Tiotropium 18 MCG inhalation IH SCH (07:26)
[2020-01-20] MEDS ORDERED: Nicotine 21 MG PATCH.TD24 TD SCH (09:00)
[2020-01-20] MEDS ORDERED: NON-FORMULARY MEDICATION 1 EACH EACH (Fluticasone/Umeclidin/Vilanter [Trelegy Ellipta 100- IH SCH (09:00)
[2020-01-20] MEDS: Fluticasone Propionate Nasal 50 MCG/SPRAY BOTTLE NS SCH (10:50)
[2020-01-20] MEDS: Nicotine 21 MG PATCH.TD24 TD SCH (10:51)
[2020-01-20] MEDS: Loratadine 10 MG TABLET PO SCH (10:52)
[2020-01-20] MEDS: Aspirin Enteric Coated 81 MG Tablet PO SCH (10:52)
[2020-01-20] MEDS: Sulfamethoxazole/Trimeth DS 1 EACH TABLET PO SCH ×2 (10:52→20:36)
[2020-01-20] MEDS: tiZANidine 4 MG TABLET PO SCH (20:36)
[2020-01-20] MEDS: Melatonin 3 MG TABLET PO SCH (20:36)
[2020-01-21] MEDS: Ipratropium/Albuterol Neb 3 ML IH SCH ×6 (03:49→23:41)
[2020-01-21] MEDS: Acetylcysteine 10% 2 ML INHSOL IH SCH ×4 (03:49→20:26)
[2020-01-21] MEDS: *HR* Heparin 5,000 UNIT/ML VIAL SQ SCH ×2 (04:48→16:57)
[2020-01-21] MEDS: methylPREDNISolone 125 MG/2 ML VIAL IVP SCH ×2 (04:48→16:57)
[2020-01-21 07:10] LABS: Basophils % 0.1 %; Eosinophils % 0.1 %; Hematocrit 42.8 % (37.5-50.1); Hemoglobin 13.2 g/dL (12.9-16.9); Immature Granulocytes % 0.6 % (0-4); Lymphocytes # 1.1 K/mcL (0.6-4.6); Lymphocytes % 5.5 %; Mean Corpuscular HGB Conc 30.8 g/dL (31.6-35.5); Mean Corpuscular Hemoglobin 30.8 pg (28.0-33.3); Mean Platelet Volume 9.2 fL (9.4-12.4); Monocytes # 1.3 K/mcL (0.0-1.3); Monocytes % 6.4 %; Neutrophils # 17.2 K/mcL (1.6-8.9); Platelet Count 452 K/mcL (140-400); Red Blood Count 4.28 M/mcL (4.19-5.50); Red Cell Distribution Width 13.8 % (11.5-14.5); Segmented Neutrophils % 87.3 %
[2020-01-21 07:12] LABS: White Blood Count 19.7 K/mcL (4.3-11.1)
[2020-01-21] MEDS: Sulfamethoxazole/Trimeth DS 1 EACH TABLET PO SCH ×2 (07:24→21:52)
[2020-01-21] MEDS: Loratadine 10 MG TABLET PO SCH (07:24)
[2020-01-21] MEDS: Aspirin Enteric Coated 81 MG Tablet PO SCH (07:25)
[2020-01-21] MEDS: Nicotine 21 MG PATCH.TD24 TD SCH (07:25)
[2020-01-21 07:42] LABS: BUN/Creatinine Ratio 37 (6-26); Blood Urea Nitrogen 29 mg/dL (8-23); Calcium 10.7 mg/dL (8.6-10.3); Carbon Dioxide 42 mEq/L (23-29); Chloride 90 mEq/L (98-107); Glucose 112 mg/dL (70-105); Osmolality,Calculated 287 (280-300); Potassium 5.9 mEq/L (3.5-5.1); Sodium 135 mEq/L (136-145); eGFR For African Americans > 60 (> 60); eGFR For Non-African Americans > 60 (> 60)
[2020-01-21] MEDS: *HR* HYDROcodone/Acet 5/325 mg TABLET PO PRN ×2 (07:50→21:54)
[2020-01-21] MEDS: Budesonide/Formoterol 160/4.5 1 PUFF INH IH SCH ×2 (08:07→20:23)
[2020-01-21 09:23] LABS: Bilirubin,Urine Negative (Negative); Blood,Urine Trace (Negative); Clarity,Urine Clear (Clear); Color,Urine Light-Yellow (Yellow); Glucose,Urine (UA) Normal (Normal); Ketones,Urine Negative (Negative); Leukocyte Esterase,Urine Negative (Negative); Mucus,Urine Few per lpf (None-Few); Nitrite,Urine Negative (Negative); PH,Urine 6.5 pH Units (5.0-8.0); Protein,Urine Trace mg/dL (Neg-Trace); Specific Gravity,Urine 1.029 (1.010-1.025); Squamous Epithelial Cell,Urine Few per hpf (None-Few); Urobilinogen,Urine Normal (Normal); WBC,Urine 0-3 per hpf (0-3)
[2020-01-21 10:46] LABS: ABG Base Excess 14 mEq/L (-2 to 3); ABG HCO3 42 mEq/L (21-27); ABG Oxygen Saturation 95 % (95-98); ABG PCO2 73 mmHg (35-45); ABG PH 7.37 pH Units (7.32-7.45); ABG PO2 84 mmHg (85-104); ABG TCO2 45 mEq/L (20-26); Blood Gas FiO2 4.5 (1-15=lpm or21-100=%)
[2020-01-21] MEDS: Fluticasone Propionate Nasal 50 MCG/SPRAY BOTTLE NS SCH (10:49)
[2020-01-21] MEDS: Tiotropium 18 MCG inhalation IH SCH (19:08)
[2020-01-21] MEDS: Melatonin 3 MG TABLET PO SCH (21:51)
[2020-01-21] MEDS: tiZANidine 4 MG TABLET PO SCH (21:52)
[2020-01-22] MEDS: Ipratropium/Albuterol Neb 3 ML IH SCH ×6 (03:34→23:25)
[2020-01-22] MEDS: Acetylcysteine 10% 2 ML INHSOL IH SCH ×4 (03:34→20:08)
[2020-01-22] MEDS: *HR* Heparin 5,000 UNIT/ML VIAL SQ SCH ×2 (05:00→17:17)
[2020-01-22] MEDS: methylPREDNISolone 125 MG/2 ML VIAL IVP SCH ×2 (05:01→17:17)
[2020-01-22 05:37] LABS: Basophils % 0.1 %; Hematocrit 36.3 % (37.5-50.1); Immature Granulocytes % 0.6 % (0-4); Lymphocytes # 1.1 K/mcL (0.6-4.6); Lymphocytes % 6.2 %; Mean Corpuscular HGB Conc 31.1 g/dL (31.6-35.5); Mean Corpuscular Hemoglobin 31.3 pg (28.0-33.3); Mean Corpuscular Volume 100.6 fL (83.0-100.0); Mean Platelet Volume 9.4 fL (9.4-12.4); Monocytes # 1.6 K/mcL (0.0-1.3); Monocytes % 9.3 %; Neutrophils # 14.6 K/mcL (1.6-8.9); Platelet Count 409 K/mcL (140-400); Red Blood Count 3.61 M/mcL (4.19-5.50); Red Cell Distribution Width 13.9 % (11.5-14.5); Segmented Neutrophils % 83.8 %; White Blood Count 17.5 K/mcL (4.3-11.1)
[2020-01-22 05:41] LABS: Hemoglobin 11.3 g/dL (12.9-16.9)
[2020-01-22 05:56] LABS: BUN/Creatinine Ratio 43 (6-26); Blood Urea Nitrogen 29 mg/dL (8-23); Calcium 9.6 mg/dL (8.6-10.3); Carbon Dioxide 43 mEq/L (23-29); Chloride 93 mEq/L (98-107); Glucose 111 mg/dL (70-105); Osmolality,Calculated 293 (280-300); Potassium 4.5 mEq/L (3.5-5.1); Sodium 138 mEq/L (136-145); eGFR For African Americans > 60 (> 60); eGFR For Non-African Americans > 60 (> 60)
[2020-01-22] MEDS: Nicotine 21 MG PATCH.TD24 TD SCH (08:20)
[2020-01-22] MEDS: Sulfamethoxazole/Trimeth DS 1 EACH TABLET PO SCH ×2 (08:28→21:03)
[2020-01-22] MEDS: Fluticasone Propionate Nasal 50 MCG/SPRAY BOTTLE NS SCH (08:28)
[2020-01-22] MEDS: Aspirin Enteric Coated 81 MG Tablet PO SCH (08:28)
[2020-01-22] MEDS: Loratadine 10 MG TABLET PO SCH (08:28)
[2020-01-22] MEDS: Budesonide/Formoterol 160/4.5 1 PUFF INH IH SCH ×2 (10:48→20:11)
[2020-01-22] MEDS: Tiotropium 18 MCG inhalation IH SCH (10:49)
[2020-01-22] MEDS: tiZANidine 4 MG TABLET PO SCH (21:03)
[2020-01-22] MEDS: Melatonin 3 MG TABLET PO SCH (21:03)
[2020-01-22] MEDS: *HR* HYDROcodone/Acet 5/325 mg TABLET PO PRN (21:15)
[2020-01-23] MEDS: Ipratropium/Albuterol Neb 3 ML IH SCH ×6 (04:12→23:38)
[2020-01-23] MEDS: Acetylcysteine 10% 2 ML INHSOL IH SCH ×4 (04:12→20:17)
[2020-01-23 04:52] LABS: Basophils % 0.2 %; Eosinophils % 0.1 %; Hematocrit 38.3 % (37.5-50.1); Immature Granulocytes % 1.3 % (0-4); Lymphocytes # 0.9 K/mcL (0.6-4.6); Lymphocytes % 5.2 %; Mean Corpuscular HGB Conc 31.3 g/dL (31.6-35.5); Mean Corpuscular Hemoglobin 31.8 pg (28.0-33.3); Mean Corpuscular Volume 101.6 fL (83.0-100.0); Mean Platelet Volume 9.6 fL (9.4-12.4); Monocytes # 1.1 K/mcL (0.0-1.3); Monocytes % 6.1 %; Neutrophils # 15.7 K/mcL (1.6-8.9); Platelet Count 400 K/mcL (140-400); Red Blood Count 3.77 M/mcL (4.19-5.50); Red Cell Distribution Width 13.9 % (11.5-14.5); Segmented Neutrophils % 87.1 %
[2020-01-23] MEDS: methylPREDNISolone 125 MG/2 ML VIAL IVP SCH ×2 (05:18→17:41)
[2020-01-23] MEDS: *HR* Heparin 5,000 UNIT/ML VIAL SQ SCH ×2 (05:19→17:42)
[2020-01-23 05:21] LABS: BUN/Creatinine Ratio 45 (6-26); Blood Urea Nitrogen 28 mg/dL (8-23); Calcium 9.5 mg/dL (8.6-10.3); Carbon Dioxide 40 mEq/L (23-29); Chloride 93 mEq/L (98-107); Glucose 118 mg/dL (70-105); Osmolality,Calculated 293 (280-300); Potassium 4.9 mEq/L (3.5-5.1); Sodium 138 mEq/L (136-145); eGFR For African Americans > 60 (> 60); eGFR For Non-African Americans > 60 (> 60)
[2020-01-23] MEDS: *HR* HYDROcodone/Acet 5/325 mg TABLET PO PRN ×2 (05:26→21:12)
[2020-01-23] MEDS: Budesonide/Formoterol 160/4.5 1 PUFF INH IH SCH ×2 (07:25→20:18)
[2020-01-23] MEDS: Tiotropium 18 MCG inhalation IH SCH (07:26)
[2020-01-23] MEDS: Nicotine 21 MG PATCH.TD24 TD SCH (08:53)
[2020-01-23] MEDS: Loratadine 10 MG TABLET PO SCH (08:53)
[2020-01-23] MEDS: Aspirin Enteric Coated 81 MG Tablet PO SCH (08:53)
[2020-01-23] MEDS: Sulfamethoxazole/Trimeth DS 1 EACH TABLET PO SCH ×2 (08:53→20:57)
[2020-01-23] MEDS: Fluticasone Propionate Nasal 50 MCG/SPRAY BOTTLE NS SCH (08:54)
[2020-01-23] MEDS: Sodium Chloride for inhalation 3 ML VIAL IH SCH ×2 (16:15→22:15)
[2020-01-23] MEDS: Melatonin 3 MG TABLET PO SCH (20:57)
[2020-01-23] MEDS: tiZANidine 4 MG TABLET PO SCH (20:58)
[2020-01-24] MEDS: Ipratropium/Albuterol Neb 3 ML IH SCH ×6 (04:00→23:51)
[2020-01-24] MEDS: Acetylcysteine 10% 2 ML INHSOL IH SCH ×4 (04:00→19:40)
[2020-01-24] MEDS: methylPREDNISolone 125 MG/2 ML VIAL IVP SCH ×2 (05:55→17:16)
[2020-01-24] MEDS: *HR* Heparin 5,000 UNIT/ML VIAL SQ SCH ×2 (05:55→17:15)
[2020-01-24] MEDS: Budesonide/Formoterol 160/4.5 1 PUFF INH IH SCH ×2 (07:35→19:39)
[2020-01-24] MEDS: Sodium Chloride for inhalation 3 ML VIAL IH SCH (07:36)
[2020-01-24] MEDS: Tiotropium 18 MCG inhalation IH SCH (07:36)
[2020-01-24 08:17] LABS: Hematocrit 41.6 % (37.5-50.1); Mean Corpuscular HGB Conc 31.3 g/dL (31.6-35.5); Mean Corpuscular Hemoglobin 31.1 pg (28.0-33.3); Mean Corpuscular Volume 99.5 fL (83.0-100.0); Mean Platelet Volume 9.5 fL (9.4-12.4); Platelet Count 483 K/mcL (140-400); Red Blood Count 4.18 M/mcL (4.19-5.50); Red Cell Distribution Width 14.2 % (11.5-14.5); White Blood Count 21.4 K/mcL (4.3-11.1)
[2020-01-24 08:54] LABS: BUN/Creatinine Ratio 42 (6-26); Blood Urea Nitrogen 29 mg/dL (8-23); Carbon Dioxide 43 mEq/L (23-29); Chloride 90 mEq/L (98-107); Glucose 106 mg/dL (70-105); Osmolality,Calculated 290 (280-300); Potassium 4.9 mEq/L (3.5-5.1); Sodium 137 mEq/L (136-145); eGFR For African Americans > 60 (> 60); eGFR For Non-African Americans > 60 (> 60)
[2020-01-24] MEDS: Sulfamethoxazole/Trimeth DS 1 EACH TABLET PO SCH ×2 (10:01→20:53)
[2020-01-24] MEDS: Loratadine 10 MG TABLET PO SCH (10:01)
[2020-01-24] MEDS: Aspirin Enteric Coated 81 MG Tablet PO SCH (10:01)
[2020-01-24] MEDS: Nicotine 21 MG PATCH.TD24 TD SCH (10:01)
[2020-01-24] MEDS: Fluticasone Propionate Nasal 50 MCG/SPRAY BOTTLE NS SCH (10:02)
[2020-01-24] MEDS: *HR* HYDROcodone/Acet 5/325 mg TABLET PO PRN ×2 (10:09→20:52)
[2020-01-24] MEDS: levoFLOXacin 750 MG TABLET PO SCH (12:54)
[2020-01-24] MEDS: Melatonin 3 MG TABLET PO SCH (20:53)
[2020-01-24] MEDS: tiZANidine 4 MG TABLET PO SCH (20:53)
[2020-01-25] MEDS: Acetylcysteine 10% 2 ML INHSOL IH SCH ×4 (03:52→20:17)
[2020-01-25] MEDS: Ipratropium/Albuterol Neb 3 ML IH SCH ×6 (03:52→23:57)
[2020-01-25] MEDS: methylPREDNISolone 125 MG/2 ML VIAL IVP SCH ×2 (04:45→18:16)
[2020-01-25] MEDS: *HR* HYDROcodone/Acet 5/325 mg TABLET PO PRN ×2 (04:46→20:52)
[2020-01-25] MEDS: *HR* Heparin 5,000 UNIT/ML VIAL SQ SCH ×2 (04:50→18:16)
[2020-01-25 05:09] LABS: Basophils # 0.1 K/mcL (0.0-0.2); Basophils % 0.6 %; Hematocrit 39.8 % (37.5-50.1); Hemoglobin 12.5 g/dL (12.9-16.9); Immature Granulocytes % 4.4 % (0-4); Lymphocytes # 1.7 K/mcL (0.6-4.6); Lymphocytes % 7.1 %; Mean Corpuscular HGB Conc 31.4 g/dL (31.6-35.5); Mean Corpuscular Hemoglobin 31.1 pg (28.0-33.3); Mean Platelet Volume 9.5 fL (9.4-12.4); Monocytes # 2.3 K/mcL (0.0-1.3); Monocytes % 9.7 %; Neutrophils # 18.5 K/mcL (1.6-8.9); Nucleated Red Blood Cells 0.1 /100 WBC (0); Platelet Count 444 K/mcL (140-400); Red Blood Count 4.02 M/mcL (4.19-5.50); Red Cell Distribution Width 14.1 % (11.5-14.5); Segmented Neutrophils % 78.2 %; White Blood Count 23.7 K/mcL (4.3-11.1)
[2020-01-25 05:10] LABS: INR 1.1; Prothrombin Time 12.2 Seconds (9.4-12.1)
[2020-01-25 05:23] LABS: BUN/Creatinine Ratio 41 (6-26); Blood Urea Nitrogen 31 mg/dL (8-23); Calcium 9.7 mg/dL (8.6-10.3); Carbon Dioxide 37 mEq/L (23-29); Chloride 93 mEq/L (98-107); Glucose 108 mg/dL (70-105); Osmolality,Calculated 289 (280-300); Potassium 5.1 mEq/L (3.5-5.1); Sodium 136 mEq/L (136-145); eGFR For African Americans > 60 (> 60); eGFR For Non-African Americans > 60 (> 60)
[2020-01-25] MEDS ORDERED: Lidocaine -MPF 4% 5 ML AMPUL ONE (07:20)
[2020-01-25] MEDS ORDERED: Ondansetron 4 MG/2 ML VIAL ONE (07:20)
[2020-01-25] MEDS ORDERED: *HR* Succinylcholine 200 MG/10 ML VIAL IVP ONE (07:20)
[2020-01-25] MEDS ORDERED: Dexamethasone 4 MG/ML VIAL ONE (07:20)
[2020-01-25] MEDS ORDERED: Lidocaine -MPF 2% 2 ML VIAL ONE (07:20)
[2020-01-25] MEDS ORDERED: *HR* Propofol 200 MG/20 ML VIAL IVP ONE (07:24)
[2020-01-25] MEDS: Budesonide/Formoterol 160/4.5 1 PUFF INH IH SCH ×2 (07:48→20:16)
[2020-01-25] MEDS: Tiotropium 18 MCG inhalation IH SCH (07:48)
[2020-01-25] MEDS ORDERED: *HR* Labetalol 20 MG/4 ML SYRINGE IVP PRN (09:09)
[2020-01-25] MEDS ORDERED: *HR* Labetalol 20 MG/4 ML SYRINGE IVP ONE (09:17)
[2020-01-25] MEDS: Nicotine 21 MG PATCH.TD24 TD SCH (10:20)
[2020-01-25] MEDS: Sulfamethoxazole/Trimeth DS 1 EACH TABLET PO SCH ×2 (10:21→20:50)
[2020-01-25] MEDS: Aspirin Enteric Coated 81 MG Tablet PO SCH (10:21)
[2020-01-25] MEDS: Loratadine 10 MG TABLET PO SCH (10:21)
[2020-01-25] MEDS: levoFLOXacin 750 MG TABLET PO SCH (10:22)
[2020-01-25] MEDS: Fluticasone Propionate Nasal 50 MCG/SPRAY BOTTLE NS SCH (14:25)
[2020-01-25] MEDS: tiZANidine 4 MG TABLET PO SCH (20:50)
[2020-01-25] MEDS: Melatonin 3 MG TABLET PO SCH (20:51)
[2020-01-25 21:03] LABS: Appearance of Body Fluid Hazy (Clear); Volume of Body Fluid 14 mL
[2020-01-25 21:14] LABS: Appearance of Body Fluid Cloudy (Clear); Volume of Body Fluid 16 mL
[2020-01-25 21:31] LABS: Appearance of Body Fluid Cloudy (Clear); Volume of Body Fluid 12 mL
[2020-01-26] MEDS: Ipratropium/Albuterol Neb 3 ML IH SCH ×6 (03:48→23:28)
[2020-01-26] MEDS: Acetylcysteine 10% 2 ML INHSOL IH SCH ×4 (03:48→20:26)
[2020-01-26 05:12] LABS: Basophils % 0.3 %; Nucleated Red Blood Cells 0.1 /100 WBC (0)
[2020-01-26 05:13] LABS: Basophils # 0.1 K/mcL (0.0-0.2); Hematocrit 39.3 % (37.5-50.1); Hemoglobin 12.8 g/dL (12.9-16.9); Immature Granulocytes % 2.2 % (0-4); Lymphocytes # 1.1 K/mcL (0.6-4.6); Lymphocytes % 4.2 %; Mean Corpuscular HGB Conc 32.6 g/dL (31.6-35.5); Mean Corpuscular Hemoglobin 32.2 pg (28.0-33.3); Mean Platelet Volume 9.7 fL (9.4-12.4); Monocytes % 7.3 %; Neutrophils # 23.3 K/mcL (1.6-8.9); Platelet Count 406 K/mcL (140-400); Red Blood Count 3.97 M/mcL (4.19-5.50); White Blood Count 27.1 K/mcL (4.3-11.1)
[2020-01-26 05:30] LABS: BUN/Creatinine Ratio 44 (6-26); Blood Urea Nitrogen 35 mg/dL (8-23); Calcium 9.3 mg/dL (8.6-10.3); Carbon Dioxide 34 mEq/L (23-29); Chloride 89 mEq/L (98-107); Glucose 160 mg/dL (70-105); Osmolality,Calculated 287 (280-300); Potassium 5.1 mEq/L (3.5-5.1); Sodium 133 mEq/L (136-145); eGFR For African Americans > 60 (> 60); eGFR For Non-African Americans > 60 (> 60)
[2020-01-26] MEDS: methylPREDNISolone 125 MG/2 ML VIAL IVP SCH (05:44)
[2020-01-26] MEDS: *HR* Heparin 5,000 UNIT/ML VIAL SQ SCH ×2 (05:48→17:45)
[2020-01-26] MEDS: *HR* HYDROcodone/Acet 5/325 mg TABLET PO PRN ×2 (06:03→17:46)
[2020-01-26] MEDS: Budesonide/Formoterol 160/4.5 1 PUFF INH IH SCH ×2 (07:25→20:22)
[2020-01-26] MEDS: Tiotropium 18 MCG inhalation IH SCH (07:27)
[2020-01-26 08:05] LABS: Platelet Estimate Increased (Normal)
[2020-01-26 08:06] LABS: Large Platelets Present (Not Present); Reactive Lymphocytes Present (Not Present); Toxic Granulation Present (Not Present)
[2020-01-26] MEDS: Piperacillin/Tazobactam 3.375 GM in 0.9 % Sodium Chloride Mini Bag 100 ML IVPB SCH ×2 (08:22→16:11)
[2020-01-26] MEDS: Sulfamethoxazole/Trimeth DS 1 EACH TABLET PO SCH ×2 (08:23→21:39)
[2020-01-26] MEDS: Loratadine 10 MG TABLET PO SCH (08:23)
[2020-01-26] MEDS: Fluticasone Propionate Nasal 50 MCG/SPRAY BOTTLE NS SCH (08:24)
[2020-01-26] MEDS: Aspirin Enteric Coated 81 MG Tablet PO SCH (08:24)
[2020-01-26] MEDS: Nicotine 21 MG PATCH.TD24 TD SCH (08:24)
[2020-01-26 14:12] LABS: A.galactomannan Ag Index 0.08
[2020-01-26] MEDS: Sennosides/Docusate Sodium TABLET PO SCH ×2 (16:09→21:39)
[2020-01-26] MEDS: tiZANidine 4 MG TABLET PO SCH (21:40)
[2020-01-26] MEDS: Melatonin 3 MG TABLET PO SCH (21:40)
[2020-01-27] MEDS: Piperacillin/Tazobactam 3.375 GM in 0.9 % Sodium Chloride Mini Bag 100 ML IVPB SCH ×3 (00:44→18:38)
[2020-01-27] MEDS: Acetylcysteine 10% 2 ML INHSOL IH SCH ×3 (03:41→16:00)
[2020-01-27] MEDS: Ipratropium/Albuterol Neb 3 ML IH SCH ×5 (03:43→20:06)
[2020-01-27 05:30] LABS: BUN/Creatinine Ratio 39 (6-26); Blood Urea Nitrogen 35 mg/dL (8-23); Calcium 9.4 mg/dL (8.6-10.3); Carbon Dioxide 36 mEq/L (23-29); Chloride 91 mEq/L (98-107); Glucose 84 mg/dL (70-105); Osmolality,Calculated 285 (280-300); Potassium 4.9 mEq/L (3.5-5.1); Sodium 134 mEq/L (136-145); eGFR For African Americans > 60 (> 60); eGFR For Non-African Americans > 60 (> 60)
[2020-01-27 05:33] LABS: Mean Platelet Volume 9.6 fL (9.4-12.4); Red Cell Distribution Width 14.3 % (11.5-14.5)
[2020-01-27 05:35] LABS: Basophils # 0.1 K/mcL (0.0-0.2); Basophils % 0.5 %; Hematocrit 39.8 % (37.5-50.1); Hemoglobin 12.6 g/dL (12.9-16.9); Immature Granulocytes % 3.2 % (0-4); Lymphocytes % 6.9 %; Mean Corpuscular HGB Conc 31.7 g/dL (31.6-35.5); Mean Corpuscular Hemoglobin 31.1 pg (28.0-33.3); Mean Corpuscular Volume 98.3 fL (83.0-100.0); Monocytes # 2.6 K/mcL (0.0-1.3); Monocytes % 9.2 %; Nucleated Red Blood Cells 0.1 /100 WBC (0); Platelet Count 390 K/mcL (140-400); Red Blood Count 4.05 M/mcL (4.19-5.50); Segmented Neutrophils % 80.2 %; White Blood Count 28.5 K/mcL (4.3-11.1)
[2020-01-27] MEDS: *HR* Heparin 5,000 UNIT/ML VIAL SQ SCH ×2 (05:50→18:37)
[2020-01-27 05:59] LABS: Neutrophils # 22.9 K/mcL (1.6-8.9)
[2020-01-27 06:51] LABS: Platelet Estimate Normal (Normal); Reactive Lymphocytes Present (Not Present); Toxic Granulation Present (Not Present)
[2020-01-27] MEDS: Budesonide/Formoterol 160/4.5 1 PUFF INH IH SCH ×2 (07:23→20:09)
[2020-01-27] MEDS: Tiotropium 18 MCG inhalation IH SCH (07:24)
[2020-01-27] MEDS: Sennosides/Docusate Sodium TABLET PO SCH ×2 (09:48→21:36)
[2020-01-27] MEDS: Nicotine 21 MG PATCH.TD24 TD SCH (09:48)
[2020-01-27] MEDS: predniSONE 20 MG TABLET PO SCH (09:49)
[2020-01-27] MEDS: Sulfamethoxazole/Trimeth DS 1 EACH TABLET PO SCH ×2 (09:49→21:36)
[2020-01-27] MEDS: Loratadine 10 MG TABLET PO SCH (09:49)
[2020-01-27] MEDS: Aspirin Enteric Coated 81 MG Tablet PO SCH (09:49)
[2020-01-27] MEDS: Fluticasone Propionate Nasal 50 MCG/SPRAY BOTTLE NS SCH (09:50)
[2020-01-27 10:44] LABS: Aspergillus fumigatus IgE 0.48 kU/L (<=0.34)
[2020-01-27 20:57] LABS: BronchAsperGalactomannan Index 0.05
[2020-01-27] MEDS: Melatonin 3 MG TABLET PO SCH (21:36)
[2020-01-27] MEDS: tiZANidine 4 MG TABLET PO SCH (21:36)
[2020-01-28] MEDS: Acetylcysteine 10% 2 ML INHSOL IH SCH ×5 (00:39→23:38)
[2020-01-28] MEDS: Ipratropium/Albuterol Neb 3 ML IH SCH ×7 (00:40→23:45)
[2020-01-28] MEDS: Piperacillin/Tazobactam 3.375 GM in 0.9 % Sodium Chloride Mini Bag 100 ML IVPB SCH ×4 (01:40→23:50)
[2020-01-28 05:37] LABS: Influenza A PCR Body Fluid NOT DETECTED; Influenza B PCR Body Fluid NOT DETECTED; RVP Body Fluid Source BAL
[2020-01-28] MEDS: *HR* Heparin 5,000 UNIT/ML VIAL SQ SCH ×2 (06:50→17:06)
[2020-01-28] MEDS: Tiotropium 18 MCG inhalation IH SCH (07:27)
[2020-01-28] MEDS: Budesonide/Formoterol 160/4.5 1 PUFF INH IH SCH ×2 (07:27→23:44)
[2020-01-28 08:06] LABS: Basophils # 0.1 K/mcL (0.0-0.2); Basophils % 0.6 %; Eosinophils # 0.1 K/mcL (0.0-0.6); Eosinophils % 0.2 %; Hematocrit 39.8 % (37.5-50.1); Hemoglobin 12.5 g/dL (12.9-16.9); Immature Granulocytes % 3.9 % (0-4); Lymphocytes # 1.8 K/mcL (0.6-4.6); Lymphocytes % 8.5 %; Mean Corpuscular HGB Conc 31.4 g/dL (31.6-35.5); Mean Corpuscular Hemoglobin 31.6 pg (28.0-33.3); Mean Corpuscular Volume 100.8 fL (83.0-100.0); Mean Platelet Volume 9.3 fL (9.4-12.4); Monocytes # 1.6 K/mcL (0.0-1.3); Monocytes % 7.5 %; Neutrophils # 16.7 K/mcL (1.6-8.9); Platelet Count 331 K/mcL (140-400); Red Blood Count 3.95 M/mcL (4.19-5.50); Red Cell Distribution Width 14.6 % (11.5-14.5); Segmented Neutrophils % 79.3 %
[2020-01-28 08:20] LABS: BUN/Creatinine Ratio 32 (6-26); Blood Urea Nitrogen 26 mg/dL (8-23); Calcium 9.2 mg/dL (8.6-10.3); Carbon Dioxide 34 mEq/L (23-29); Chloride 95 mEq/L (98-107); Glucose 112 mg/dL (70-105); Osmolality,Calculated 286 (280-300); Potassium 4.3 mEq/L (3.5-5.1); Sodium 135 mEq/L (136-145); eGFR For African Americans > 60 (> 60); eGFR For Non-African Americans > 60 (> 60)
[2020-01-28] MEDS: Sennosides/Docusate Sodium TABLET PO SCH ×2 (10:32→20:24)
[2020-01-28] MEDS: Loratadine 10 MG TABLET PO SCH (10:32)
[2020-01-28] MEDS: predniSONE 20 MG TABLET PO SCH (10:32)
[2020-01-28] MEDS: Nicotine 21 MG PATCH.TD24 TD SCH (10:33)
[2020-01-28] MEDS: Aspirin Enteric Coated 81 MG Tablet PO SCH (10:33)
[2020-01-28] MEDS: Fluticasone Propionate Nasal 50 MCG/SPRAY BOTTLE NS SCH (10:41)
[2020-01-28 12:25] LABS: RSV PCR Body Fluid NOT DETECTED
[2020-01-28] MEDS: tiZANidine 4 MG TABLET PO SCH (20:24)
[2020-01-28] MEDS: Melatonin 3 MG TABLET PO SCH (20:24)
[2020-01-29] MEDS: Ipratropium/Albuterol Neb 3 ML IH SCH ×6 (03:34→23:02)
[2020-01-29 05:02] LABS: Basophils # 0.1 K/mcL (0.0-0.2); Basophils % 0.5 %; Eosinophils # 0.2 K/mcL (0.0-0.6); Eosinophils % 0.7 %; Hematocrit 36.2 % (37.5-50.1); Hemoglobin 11.3 g/dL (12.9-16.9); Immature Granulocytes % 3.6 % (0-4); Lymphocytes # 1.8 K/mcL (0.6-4.6); Lymphocytes % 8.3 %; Mean Corpuscular HGB Conc 31.2 g/dL (31.6-35.5); Mean Corpuscular Hemoglobin 31.1 pg (28.0-33.3); Mean Corpuscular Volume 99.7 fL (83.0-100.0); Mean Platelet Volume 9.7 fL (9.4-12.4); Monocytes # 2.1 K/mcL (0.0-1.3); Monocytes % 9.9 %; Neutrophils # 16.7 K/mcL (1.6-8.9); Platelet Count 318 K/mcL (140-400); Red Blood Count 3.63 M/mcL (4.19-5.50); Red Cell Distribution Width 14.7 % (11.5-14.5); White Blood Count 21.7 K/mcL (4.3-11.1)
[2020-01-29 05:23] LABS: BUN/Creatinine Ratio 33 (6-26); Blood Urea Nitrogen 23 mg/dL (8-23); Calcium 8.9 mg/dL (8.6-10.3); Carbon Dioxide 33 mEq/L (23-29); Chloride 97 mEq/L (98-107); Glucose 89 mg/dL (70-105); Osmolality,Calculated 283 (280-300); Potassium 4.4 mEq/L (3.5-5.1); Sodium 135 mEq/L (136-145); eGFR For African Americans > 60 (> 60); eGFR For Non-African Americans > 60 (> 60)
[2020-01-29] MEDS: *HR* Heparin 5,000 UNIT/ML VIAL SQ SCH ×2 (05:39→17:35)
[2020-01-29] MEDS: Tiotropium 18 MCG inhalation IH SCH (07:36)
[2020-01-29] MEDS: Acetylcysteine 10% 2 ML INHSOL IH SCH ×4 (07:37→19:51)
[2020-01-29] MEDS: Budesonide/Formoterol 160/4.5 1 PUFF INH IH SCH ×2 (07:41→19:50)
[2020-01-29] MEDS: Piperacillin/Tazobactam 3.375 GM in 0.9 % Sodium Chloride Mini Bag 100 ML IVPB SCH ×2 (10:01→16:26)
[2020-01-29] MEDS: Loratadine 10 MG TABLET PO SCH (10:02)
[2020-01-29] MEDS: Sennosides/Docusate Sodium TABLET PO SCH ×2 (10:02→20:04)
[2020-01-29] MEDS: Nicotine 21 MG PATCH.TD24 TD SCH (10:02)
[2020-01-29] MEDS: predniSONE 20 MG TABLET PO SCH (10:02)
[2020-01-29] MEDS: Aspirin Enteric Coated 81 MG Tablet PO SCH (10:03)
[2020-01-29] MEDS: Fluticasone Propionate Nasal 50 MCG/SPRAY BOTTLE NS SCH (10:03)
[2020-01-29] MEDS: tiZANidine 4 MG TABLET PO SCH (20:04)
[2020-01-29] MEDS: Melatonin 3 MG TABLET PO SCH (20:05)
[2020-01-30] MEDS: Piperacillin/Tazobactam 3.375 GM in 0.9 % Sodium Chloride Mini Bag 100 ML IVPB SCH ×2 (00:26→08:07)
[2020-01-30] MEDS: Ipratropium/Albuterol Neb 3 ML IH SCH ×5 (04:07→20:11)
[2020-01-30] MEDS: Acetylcysteine 10% 2 ML INHSOL IH SCH ×4 (04:07→20:14)
[2020-01-30 05:25] LABS: Basophils # 0.1 K/mcL (0.0-0.2); Basophils % 0.3 %; Eosinophils # 0.1 K/mcL (0.0-0.6); Eosinophils % 0.5 %; Hematocrit 35.2 % (37.5-50.1); Hemoglobin 11.3 g/dL (12.9-16.9); Immature Granulocytes % 3.6 % (0-4); Lymphocytes % 10.5 %; Mean Corpuscular HGB Conc 32.1 g/dL (31.6-35.5); Mean Corpuscular Hemoglobin 32.5 pg (28.0-33.3); Mean Corpuscular Volume 101.1 fL (83.0-100.0); Mean Platelet Volume 9.4 fL (9.4-12.4); Monocytes # 1.7 K/mcL (0.0-1.3); Monocytes % 8.9 %; Neutrophils # 14.7 K/mcL (1.6-8.9); Platelet Count 274 K/mcL (140-400); Red Blood Count 3.48 M/mcL (4.19-5.50); Red Cell Distribution Width 14.6 % (11.5-14.5); Segmented Neutrophils % 76.2 %; White Blood Count 19.3 K/mcL (4.3-11.1)
[2020-01-30] MEDS: *HR* Heparin 5,000 UNIT/ML VIAL SQ SCH ×2 (05:25→17:06)
[2020-01-30 05:45] LABS: BUN/Creatinine Ratio 31 (6-26); Blood Urea Nitrogen 19 mg/dL (8-23); Carbon Dioxide 34 mEq/L (23-29); Chloride 97 mEq/L (98-107); Glucose 89 mg/dL (70-105); Osmolality,Calculated 282 (280-300); Potassium 4.2 mEq/L (3.5-5.1); Sodium 135 mEq/L (136-145); eGFR For African Americans > 60 (> 60); eGFR For Non-African Americans > 60 (> 60)
[2020-01-30] MEDS: Budesonide/Formoterol 160/4.5 1 PUFF INH IH SCH ×2 (07:28→20:11)
[2020-01-30] MEDS: Tiotropium 18 MCG inhalation IH SCH (07:30)
[2020-01-30] MEDS: Nicotine 21 MG PATCH.TD24 TD SCH (08:05)
[2020-01-30] MEDS: Aspirin Enteric Coated 81 MG Tablet PO SCH (08:05)
[2020-01-30] MEDS: predniSONE 20 MG TABLET PO SCH (08:05)
[2020-01-30] MEDS: Loratadine 10 MG TABLET PO SCH (08:06)
[2020-01-30] MEDS: Fluticasone Propionate Nasal 50 MCG/SPRAY BOTTLE NS SCH (08:06)
[2020-01-30] MEDS: Sennosides/Docusate Sodium TABLET PO SCH ×2 (08:07→22:36)
[2020-01-30] MEDS: Nystatin SUSP 5 ML UD.LIQ PO SCH ×4 (10:05→22:35)
[2020-01-30] MEDS: Cefepime HCl 2,000 MG in Water for inj. (sterile) 20 ML IVP SCH (17:07)
[2020-01-30] MEDS: Melatonin 3 MG TABLET PO SCH (22:36)
[2020-01-30] MEDS: tiZANidine 4 MG TABLET PO SCH (22:37)
[2020-01-31] MEDS: Ipratropium/Albuterol Neb 3 ML IH SCH ×6 (00:04→20:00)
[2020-01-31] MEDS: Acetylcysteine 10% 2 ML INHSOL IH SCH ×4 (03:51→20:00)
[2020-01-31] MEDS: Cefepime HCl 2,000 MG in Water for inj. (sterile) 20 ML IVP SCH ×2 (06:00→17:32)
[2020-01-31] MEDS: *HR* Heparin 5,000 UNIT/ML VIAL SQ SCH ×2 (06:01→17:34)
[2020-01-31 06:33] LABS: Basophils # 0.1 K/mcL (0.0-0.2); Basophils % 0.4 %; Eosinophils # 0.2 K/mcL (0.0-0.6); Hematocrit 38.3 % (37.5-50.1); Immature Granulocytes % 2.7 % (0-4); Lymphocytes # 2.8 K/mcL (0.6-4.6); Lymphocytes % 15.2 %; Mean Corpuscular HGB Conc 31.3 g/dL (31.6-35.5); Mean Corpuscular Volume 102.1 fL (83.0-100.0); Mean Platelet Volume 9.2 fL (9.4-12.4); Monocytes # 1.7 K/mcL (0.0-1.3); Monocytes % 8.9 %; Neutrophils # 13.4 K/mcL (1.6-8.9); Platelet Count 245 K/mcL (140-400); Red Blood Count 3.75 M/mcL (4.19-5.50); Red Cell Distribution Width 14.8 % (11.5-14.5); Segmented Neutrophils % 71.8 %; White Blood Count 18.7 K/mcL (4.3-11.1)
[2020-01-31 06:55] LABS: BUN/Creatinine Ratio 36 (6-26); Blood Urea Nitrogen 22 mg/dL (8-23); Calcium 9.1 mg/dL (8.6-10.3); Carbon Dioxide 33 mEq/L (23-29); Chloride 96 mEq/L (98-107); Glucose 89 mg/dL (70-105); Osmolality,Calculated 281 (280-300); Potassium 4.3 mEq/L (3.5-5.1); Sodium 134 mEq/L (136-145); eGFR For African Americans > 60 (> 60); eGFR For Non-African Americans > 60 (> 60)
[2020-01-31] MEDS: Budesonide/Formoterol 160/4.5 1 PUFF INH IH SCH ×2 (07:26→20:00)
[2020-01-31] MEDS: Tiotropium 18 MCG inhalation IH SCH (07:27)
[2020-01-31] MEDS: Nystatin SUSP 5 ML UD.LIQ PO SCH ×3 (09:12→17:39)
[2020-01-31] MEDS: predniSONE 20 MG TABLET PO SCH (09:12)
[2020-01-31] MEDS: Aspirin Enteric Coated 81 MG Tablet PO SCH (09:13)
[2020-01-31] MEDS: Sennosides/Docusate Sodium TABLET PO SCH (09:13)
[2020-01-31] MEDS: Loratadine 10 MG TABLET PO SCH (09:14)
[2020-01-31] MEDS: Nicotine 21 MG PATCH.TD24 TD SCH (09:15)
[2020-01-31] MEDS: Fluticasone Propionate Nasal 50 MCG/SPRAY BOTTLE NS SCH (09:15)
[2020-01-31 10:22] VITALS: BP 125/75
== END 2020-01-31 20:06 | disposition home health service (06) | DRG 720 ==
LOC: 3ANU 14:01 → EMEROOARM 14:01 → SUATTDRO 16:32 → 3ANU 18:51
PROVIDERS: ADMIT Family Medicine; ATTEND Family Medicine
PROC: ENDOBRF (2020-01-25 08:00)